=== PATIENT | female | born 1960 | race Caucasian/White ===

== ENCOUNTER 2016-05-07 02:01 | Inpatient (IN) | payer OTHER ==
[~2016-05-07] VITALS: Ht 167.6 cm; Wt 83.9 kg
[~2016-05-07 02:01] MED LIST: ACEPHEN650 MG PR; AMLODIPINE10 MG PO; APAP325 MG PO; ASPIRIN CHILDRE81 MG PO; ATORVASTATIN CA20 MG PO; ATORVASTATIN CA40 M1 PO; BACTRIM DS 8001 TAB PO; BISACODYL10 MG PR; CARISOPRODOL350 M1 PO; CIPRO 250MG250 MG PO; CLONIDINE0.2 MG PO; COLACE100 MG PO; COZAAR 100MG T100 MG PO; DIOVAN 160 MG160 MG PO; FLEET ENEMA 131 UNIT RC; HYDRODIURIL 2525 MG PO; JANUVIA 100MG100 MG PO; KOMBIGLYZE XR 11 TE1 PO; KOMBIGLYZE XR 11 TER PO; KOMBIGLYZE XR1 EAC1 PO; KOMBIGLYZE XR1 EAC2 PO; LASIX20 MG PO; LASIX40 M1 PO; LEVEMIR100 UNIT/1 SC; LISINOPRIL5 M1 PO; METOPROLOL SUCC50 M1 PO; METOPROLOL SUCC50 M2 PO; MILK OF MAGNESI30 ML PO; MORPHINE SULFAT15 M4 PO; MORPHINE SULFAT20 M1 PO; MORPHINE SULFAT30 M5 PO; MS CONTIN60 MG PO; NEURONTIN300 M1 PO; NEURONTIN300 MG PO; NITROSTAT0.4 MG PO; OXYCODONE HCL30 MG PO; PLAVIX 75MG TAB75 MG PO; PREDNISONE10 MG PO; PRO-STAT 101 3030 M1 PO; PROAIR HFA0.09 MG/Ac INH; REGLAN10 M1 PO; SYMBICORT 160/41 PUF INH; TOPROL XL 50MG50 MG PO; TYLENOL TAB 32325 MG PO; ZOFRAN ODT4 M1 SL
--- NOTE | 2016-05-07 02:10 | ED DYSPNEA/ASTHMA COMPLAINT ---
History of Present Illness General Chief Complaint: Dyspnea (COPD, CHF, Other) Stated Complaint: SOB Source: patient, old records, EMS Exam Limitations: no limitations Vital Signs & Intake/Output Vital Signs & Intake/Output Vital Signs Date Time Temp Pulse Resp B/P Pulse O2 O2 Flow FiO2 Ox Delivery Rate 05/07 219 94 Nasal 4.0L Cannula 05/07 214 91 Nasal 4.0L Cannula 05/07 204 97.2 112 24 131/83 91 Nasal 4.0L Cannula Allergies Coded Allergies: adhesive (UNKNOWN 09/12/15) Reconcile Medications Amlodipine Besylate (Amlodipine) 10 MG TABLET 1 TAB PO DAILY BP (Reported) Aspirin (Children's Aspirin) 81 MG TAB.CHEW 2 TAB PO DAILY HEART HEALTH Atorvastatin Calcium 40 MG TABLET 40 MG PO DAILY HEART HEALTH Carisoprodol 350 MG TABLET 1 TAB PO TIDPRN MUSCLE SPASMS (Reported) CLONIDINE HCL (Clonidine) 0.2 MG TABLET 2 TAB PO BID blood pressure (Reported ) Clopidogrel Bisulfate (Plavix) 75 MG TABLET 75 MG PO DAILY HEART HEALTH ( Reported) Docusate Sodium (Colace) 100 MG CAPSULE 1 CAP PO BID CONSTIPATION (Reported) Furosemide (Lasix) 40 MG TABLET 1 TAB PO DAILY DIURETIC (Reported) Gabapentin (Neurontin) 300 MG CAPSULE 1 CAP PO BID NERVE PAIN (Reported) Insulin Detemir (Levemir) 100 UNIT/1 ML VIAL 10 UNITS SC AT BED TIME DIABETES Lisinopril 5 MG TABLET 1 TAB PO DAILY KIDNEY HEALTH Metoprolol Succinate 50 MG TAB.ER.24H 1 TAB PO BID HEART/BP (Reported) Morphine Sulfate 15 MG TABLET 1 TAB PO Q4-6H PRN CHRONIC PAIN (Reported) Ms Contin (Morphine Sulfate ER) 60 MG TABLET.ER 1 TAB PO BID PAIN (Reported) Oxycodone HCl/Acetaminophen (Percocet 5-325 MG Tablet) 5 MG-325 MG TABLET 5 MG PO PRN PAIN (Reported) Saxagliptin HCl/Metformin HCl (Kombiglyze XR 2.5-1,000 MG Tab) 1 EACH TBMP.24HR 1 TAB PO BID DIABETES Triage Nurses Notes Reviewed? yes HPI: Patient has had increasing shortness of breath and a productive cough with white sputum for the past 2 days. Rest and she went to bed feeling okay but woke up very short of breath and feeling that she cannot catch her breath. Patient has been sleeping on 2 pillows which is chronic. Patient is also been experiencing chest tightness and she woke up. Tenderness constant. There is no aggravating or mitigating factors. There is no radiation. The tightness is substernal. She rates the tightness is 4 out of 10. Positive dyspnea on exertion. Patient continues to smoke. Patient is not on home O2. Upon arrival to the emergency department her oxygen saturation is 86% on room air. Patient has not been taking her insulin over the past few days because she has not felt well. Past History Travel History Traveled to [place] past 21 day No Medical History Any Pertinent Medical History? see below for history Neurological: NEUROPATHY EENT: NONE Cardiovascular: CAD, hypertension, PVD Respiratory: NONE Gastrointestinal: GERD Hepatic: NONE Renal: NONE Musculoskeletal: NONE Psychiatric: NONE Endocrine: diabetes Blood Disorders: NONE Cancer(s): NONE UROLOGY PHYSICIAN/Reproductive: NONE History of MRSA: Yes History of VRE: No History of CDIFF: No Surgical History Surgical History: non-contributory Psychosocial History Who do you live with Spouse What is your primary language Tajik Tobacco Use: Current Daily Use Daily Tobacco Use Amount/Type: => 5 Cigarettes daily ETOH Use: occasional use Illicit Drug Use: denies illicit drug use Family History Family History, If Any: Relation not specified for: *No pertinent family history Hx Contributory? No Review of Systems Review of Systems Constitutional: Reports: no symptoms. EENTM: Reports: no symptoms. Respiratory: Reports: see HPI, cough, short of breath, sputum production. Cardiovascular: Reports: see HPI, chest pain. GI: Reports: no symptoms. Genitourinary: Reports: no symptoms. Musculoskeletal: Reports: no symptoms. Skin: Reports: no symptoms. Neurological/Psychological: Reports: no symptoms. Hematologic/Endocrine: Reports: no symptoms. Immunologic/Allergic: Reports: no symptoms. All Other Systems: Reviewed and Negative Physical Exam Physical Exam General Appearance: well developed/nourished, alert, awake, anxious, severe distress Head: atraumatic Eyes: Bilateral: PERRL, EOMI. Ears, Nose, Throat: normal pharynx, normal ENT inspection Neck: normal inspection, supple, JVD Respiratory: decreased breath sounds, respiratory distress Cardiovascular: regular rate/rhythm, normal peripheral pulses Gastrointestinal: normal bowel sounds, soft, non-tender, no organomegaly Extremities: normal inspection, normal capillary refill, pedal edema Neurologic/Psych: no motor/sensory deficits, awake, alert, oriented x 3, normal mood/affect Skin: intact, normal color, warm/dry Lymphatic: no anterior cervical leandra Core Measures ACS in differential dx? Yes Severe Sepsis Present: No Septic Shock Present: No Progress Differential Diagnosis: AMI, bronchitis, CHF, COPD, pulmonary embolism, pneumonia, pneumothorax Plan of Care: Orders Procedure Date/time Status Admit to inpatient 05/07 0355 Active CTA CHEST-PULMONARY EMBOLISM 05/07 032 Active ARTERIAL BLOOD GAS (GEN) 05/07 206 Complete Telemetry/Technical Clerk 05/07 206 Active URINALYSIS 05/07 206 Active TROPONIN LEVEL 05/07 206 Complete D-DIMER 05/07 206 Complete COMPREHENSIVE METABOLIC PANEL 05/07 206 Complete CBC WITHOUT DIFFERENTIAL 05/07 206 Complete B-TYPE NATRIURETIC PEP (BNP) 05/07 206 Complete ACETONE 05/07 206 Complete EKG 05/07 206 Active Current Medications Sig/Zulma Start time Last Medication Dose Stop Time Status Admin Heparin Sodium 25,000 UNIT Q24H 05/07 344 UNVr (Porcine) (Heparin) Sodium Chloride 500 ML Heparin Sodium 4,000 UNIT ONCE ONE 05/07 344 UNVr (Porcine) 05/07 345 (Heparin Bolus) Insulin Human Regular 10 UNITS ONCE ONE 05/07 329 UNVr (Novolin R Inj) 05/07 033 Laboratory Tests 05/07/16 0345: Urine Color Pending, Urine Clarity Pending, Urine pH Pending, Ur Specific Steen Pending, Urine Protein Pending, Urine Ketones Pending, Urine Nitrite Pending, Urine Bilirubin Pending, Urine Urobilinogen Pending, Ur Leukocyte Esterase Pending, Ur Microscopic Pending, Urine Hemoglobin Pending, Urine Glucose Pending 05/07/16 0241: Anion Gap 12, Estimated GFR 57 L, BUN/Creatinine Ratio 21.0, Glucose 536 *H, Calcium 8.9, Total Bilirubin 0.4, AST 37 H, ALT 53 H, Alkaline Phosphatase 117 , Troponin I 0.36 *H, Xml-[id number]-Qgmrafaqams Pept 2430 H, Total Protein 6.2 L, Albumin 3.6, Globulin 2.6, Albumin/Globulin Ratio 1.4, D-Dimer 384 H, CBC w Diff NO MAN DIFF REQ, RBC 4.78, MCV 84.9, MCH 27.7, RDW 14.4, MPV 8.8, Gran % 81.8 H, Lymphocytes % 13.9 L, Monocytes % 3.1, Eosinophils % 0.9, Basophils % 0.3, Absolute Granulocytes 8.4 H, Absolute Lymphocytes 1.4, Absolute Monocytes 0.3, Absolute Eosinophils 0.1, Absolute Basophils 0, PUBS MCHC 32.6 L, Acetone Level NEGATIVE 05/07/16214: pH 7.39, pCO2 42, pO2 69 L, HCO3 25, ABG O2 Sat (Measured) 90.0 L, P-50 (Temp Corrected) Y, Carboxyhemoglobin 4.2, O2 Concentration % 4 LPM, Temperature 97.2, O2 Delivery Method N/C, Phlebotomy Draw Site RIGHT RADIAL Diagnostic Imaging: Viewed by Me: Radiology Read. Discussed w/RAD: Radiology Read. CXR Impression: PATIENT: TREY STARR PRESENT AGE: 56 PATIENT ACCOUNT NO: [id number] : 58 LOCATION: [facility] ORDERING PHYSICIAN: KEVIN VILLANUEVA MD SERVICE DATE: 05/07/16 EXAM TYPE: RAD - XRY- PORTABLE CHEST XRAY EXAMINATION: XR PORTABLE CHEST CLINICAL INFORMATION: Shortness of breath, orthopnea COMPARISON: 09/12/2015 TECHNIQUE: Portable AP view of the chest was obtained. FINDINGS: Lung volumes are symmetric. No dense consolidation is seen. There is increased prominence of the interstitial markings bilaterally along with subtle Noé B-lines, favoring interstitial edema. No evidence of pneumothorax or significant pleural effusion. Cardiac size is within normal limits. Calcification is present at the aortic arch. No acute osseous findings are seen. IMPRESSION: Mild interstitial edema. DICTATED BY: SACHI CARVALHO MD DATE/TIME DICTATED:05/07/16251 PAYROLL BENEFITS CLERK:JOSE DATE/TIME TRANSCRIBED:05/07/16251 CONFIDENTIAL, DO NOT COPY WITHOUT APPROPRIATE AUTHORIZATION. <Electronically signed in Other Vendor System> SIGNED BY: SACHI CARVALHO MD 05/07/16255 Initial ED EKG: NSR, nonspecific ST T wave chg Prior EKG: unchanged Rhythm Strip: normal sinus rhythm Departure Departure Disposition: STILL A PATIENT Condition: Guarded Clinical Impression Primary Impression: Elevated troponin Secondary Impressions: Hyperglycemia, Pulmonary edema Referrals: SHILPA HIGGINS MD (PCP/Family) Departure Forms: Customer Survey General Discharge Information Admission Note Spoke With: SHILPA HIGGINS MD Documentation of Exam: Documentation of any treatments & extenuating circumstances including Concerns Regarding Discharge (functional status, medication knowledge or non-compliance, living conditions, etc.) that warrant an admission rather than observation: [ Telemetry monitoring, cardiology consultation, IV diuresis, strict blood sugar control] Critical Care Note Critical Care Note Critical Care Time: mins: (30 MIN)
--- NOTE | 2016-05-07 02:14 | NUR ---
ARRIVED ER 2 VIA AMBULANCE FROM HOME, PT AWOKE FROM SLEEP WITH ACUTE SOB, RR 24-28 O2 SAT RA 86 % PLACED ON NC AT 4L/MIN SAT INCREASED TO 91% MONITOR ST. EVALUATED BY DR VILLANUEVA
--- NOTE | 2016-05-07 02:30 | NUR ---
PORT CXR,EKG,LABS,ABGS DONE RESP TX GIVEN
[2016-05-07] MEDS ORDERED: PERCOCET 5-3251 EACH PO (02:38)
--- NOTE | 2016-05-07 02:40 | NUR ---
PT NOTED TO HAVE LG HEMATOMA RT HAND, PT STATES THAT IS WHERE THE MEDIC TRIED TO START AN IV
[2016-05-07 02:52] LABS: ABSOLUTE BASOPHIL COUNT 0 /CUMM (0.0-0.2); ABSOLUTE EOSINOPHIL COUNT 0.1 /CUMM (0.0-0.7); ABSOLUTE GRANULOCYTE CT 8.4 /CUMM (1.4-6.5); ABSOLUTE LYMPH COUNT 1.4 /CUMM (1.2-3.4); ABSOLUTE MONOCYTE COUNT 0.3 /CUMM (0.10-0.60); BASOPHIL % 0.3 % (0.0-2.0); EOSINOPHIL % 0.9 % (0-5); HEMATOCRIT 40.6 % (37-47); MEAN CORPUSCULAR HGB 27.7 PG (27.0-31.0); MEAN CORPUSCULAR HGB CONC 32.6 G/DL (33.0-37.0); MEAN CORPUSCULAR VOLUME 84.9 FL (81.0-99.0); MEAN PLATELET VOLUME 8.8 FL (7.4-10.4); PLATELET COUNT 294 /CUMM (130-400); RBC DISTRIBUTION WIDTH 14.4 % (11.5-14.5); RED BLOOD CELL CT 4.78 /CUMM (4.20-5.40); WHITE BLOOD CELL COUNT 10.3 /CUMM (4.8-10.8)
[2016-05-07 02:54] LABS: GRANULOCYTE % 81.8 % (42.2-75.2)
--- NOTE | 2016-05-07 02:56 | RADIOLOGY REPORT ---
EXAMINATION: XR PORTABLE CHEST CLINICAL INFORMATION: Shortness of breath, orthopnea COMPARISON: 09/12/2015 TECHNIQUE: Portable AP view of the chest was obtained. FINDINGS: Lung volumes are symmetric. No dense consolidation is seen. There is increased prominence of the interstitial markings bilaterally along with subtle Noé B-lines, favoring interstitial edema. No evidence of pneumothorax or significant pleural effusion. Cardiac size is within normal limits. Calcification is present at the aortic arch. No acute osseous findings are seen. IMPRESSION: Mild interstitial edema.
--- NOTE | 2016-05-07 03:00 | NUR ---
BREATHING A LITTLE EASIER AFTER TX
--- NOTE | 2016-05-07 03:33 | NUR ---
CRITICAL TEST RESULTS [id number] TREY STARR 56 F TESTS AND RESULTS: TROP 0.36 Results received and read back by: SUSIE AMIN Results received date and time: 05/07/16 0334 The following provider was notified of the results, and read the results back: DR VILLANUEVA Notified date and time: 05/07/16 at 6537
--- NOTE | 2016-05-07 03:35 | NUR ---
CRITICAL TEST RESULTS [id number] TREY STARR 56 F TESTS AND RESULTS: GLUCOSE 536 Results received and read back by: SUSIE AMIN Results received date and time: 05/07/16 0335 The following provider was notified of the results, and read the results back: DR VILLANUEVA Notified date and time: 05/07/16 at 0320
--- NOTE | 2016-05-07 03:40 | NUR ---
MEDICATEDS WITH LASIX ORDERED
--- NOTE | 2016-05-07 03:43 | NUR ---
PT OVER TO CAT SCAN VIA STRETCHER.
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
--- NOTE | 2016-05-07 04:23 | NUR ---
ASAS 325 MG PO GIVEN REG INSULIN 10 UNITS SC
--- NOTE | 2016-05-07 04:54 | CT SCAN REPORT ---
EXAMINATION: CT ANGIOGRAM OF THE CHEST WITH AND WITHOUT CONTRAST (CT PULMONARY ANGIOGRAM FOR PE) CLINICAL INFORMATION: SOB AND +D-DIMER COMPARISON: 06/21/2014 TECHNIQUE: Prior to contrast administration, noncontrast localization images were obtained. Subsequently, multidetector volumetric imaging was performed from the thoracic inlet to below the diaphragms following the administration of 77 mL Optiray 350 intravenous contrast. No contrast reaction reported Sagittal, coronal, and MIP oblique sagittal reformatted images were obtained on the CT workstation, uploaded to PACS, and reviewed. Total exam dose-length product 457.78 mGy-cm FINDINGS: QUALITY OF STUDY/CONTRAST BOLUS: Satisfactory. PULMONARY ARTERIES: No central or segmental pulmonary emboli. THORACIC AORTA: No aneurysm or dissection. There is atherosclerotic calcification along the aorta. LUNG: There is smooth interlobular septal thickening towards the lung periphery, consistent with interstitial edema. There are several scattered regions of ill-defined focal groundglass opacity bilaterally, left greater than right. There is mild upper lobe predominant emphysema. Several scattered subcentimeter nodular densities are present bilaterally, most prominently at the lung apices; these appear new from 06/21/2014. PLEURA: Trace pleural effusions are present. No pneumothorax. MEDIASTINUM: The visualized thyroid gland is unremarkable. There is mild mediastinal adenopathy in the subcarinal and paratracheal regions. Mild right hilar adenopathy is also present. Adenopathy appears overall similar to 06/21/2014. Cardiac size is within normal limits; no pericardial effusion. Coronary artery calcifications are present. No evidence of septal bowing or right heart strain. CHEST WALL/AXILLA: No axillary or internal mammary lymphadenopathy. OSSEOUS STRUCTURES: Degenerative changes are noted in the spine. UPPER ABDOMEN: An exophytic left upper pole renal cyst is again noted measuring 1.8 cm. No reflux of contrast into the hepatic veins to suggest elevated right heart pressures. IMPRESSION: 1. No evidence of pulmonary embolus. 2. Interstitial edema. 3. Multifocal regions of ill-defined groundglass opacity bilaterally could reflect regions of developing alveolar edema or other nonspecific inflammatory change. 4. Several scattered subcentimeter pulmonary nodules, nonspecific. Follow-up chest CT in 3-6 months may be performed to assess for resolution. 5. Trace pleural effusions. 6. Mediastinal and right hilar adenopathy which is similar to 06/21/2014. VTE: negative
--- NOTE | 2016-05-07 04:54 | NUR ---
HEPARIN BOLUS 4000 UNITS IV GIVEN HEPARIN DRIP 25,000 UNITS IN 500 ML 0.45% N/S STRARTED AT 12UNITS/KG (17.2 ML/HR)
--- NOTE | 2016-05-07 05:12 | NUR ---
PT ASSIGNED TO # [id number]
--- NOTE | 2016-05-07 05:16 | NUR ---
REPORT TO TROY ROBIN EVALUATED BY HOUSESTAFF
[2016-05-07 05:43] VITALS: BP 136/80
[2016-05-07 08:11] VITALS: BP 170/82
--- NOTE | 2016-05-07 10:46 | Cons- Endocrinology ---
General Information and HPI Consulting Request Date of Consult: 05/07/16 Requested By: medical team Reason for Consult: management of DM type 2. Source of Information: patient, old records Exam Limitations: no limitations History of Present Illness: 56 year old female with a complicated past medical history significant for long-standing tobacco use, obstructive sleep apnea, hypertension, dyslipidemia, diabetes mellitus type 2, and coronary artery disease s/p CABG, and severe peripheral vascular disease, presented to the emergency department at [facility] on 05/07/2016 complaining of chest tightness. She was found to have troponin of 0.36, glucose 536. She was supposed to take Levemir 10 units daily and Kombiglyze XR 2.5mg/1000 mg twice a day. She hasn't started taking Levemir; due to insurance coverage, she hasn't been on Kombiglyza for a week. Allergies/Medications Allergies: Coded Allergies: adhesive (UNKNOWN 09/12/15) Home Med List: Amlodipine Besylate (Amlodipine) 10 MG TABLET 1 TAB PO DAILY BP (Reported) Aspirin (Children's Aspirin) 81 MG TAB.CHEW 2 TAB PO DAILY HEART HEALTH Atorvastatin Calcium 40 MG TABLET 40 MG PO DAILY HEART HEALTH Carisoprodol 350 MG TABLET 1 TAB PO TIDPRN MUSCLE SPASMS (Reported) CLONIDINE HCL (Clonidine) 0.2 MG TABLET 2 TAB PO BID blood pressure (Reported ) Clopidogrel Bisulfate (Plavix) 75 MG TABLET 75 MG PO DAILY HEART HEALTH ( Reported) Docusate Sodium (Colace) 100 MG CAPSULE 1 CAP PO BID CONSTIPATION (Reported) Furosemide (Lasix) 40 MG TABLET 1 TAB PO DAILY DIURETIC (Reported) Gabapentin (Neurontin) 300 MG CAPSULE 1 CAP PO BID NERVE PAIN (Reported) Insulin Detemir (Levemir) 100 UNIT/1 ML VIAL 10 UNITS SC AT BED TIME DIABETES Lisinopril 5 MG TABLET 1 TAB PO DAILY KIDNEY HEALTH Metoprolol Succinate 50 MG TAB.ER.24H 1 TAB PO BID HEART/BP (Reported) Morphine Sulfate 15 MG TABLET 1 TAB PO Q4-6H PRN CHRONIC PAIN (Reported) Ms Contin (Morphine Sulfate ER) 60 MG TABLET.ER 1 TAB PO BID PAIN (Reported) Oxycodone HCl/Acetaminophen (Percocet 5-325 MG Tablet) 5 MG-325 MG TABLET 5 MG PO PRN PAIN (Reported) Saxagliptin HCl/Metformin HCl (Kombiglyze XR 2.5-1,000 MG Tab) 1 EACH TBMP.24HR 1 TAB PO BID DIABETES Review of Systems Review of Systems Constitutional: Reports: see HPI. Cardiovascular: Reports: chest pain. Respiratory: Reports: short of breath. GI: Denies: abdominal pain. Hematologic/Endocrine: Reports: polyuria, polydipsia. 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 Home Who Do You Live With? spouse Services at Home: None Primary Language: Greek Smoking Status: Current Some Day Smoker (40 PPD) ETOH Use: occasional use Illicit Drug Use: denies illicit drug use Functional Ability ADLs Independent: dressing, eating, toileting, bathing. Ambulation: independent Exam & Diagnostic Data Last 24 Hrs of Vital Signs/I&O Vital Signs Date Time Temp Pulse Resp B/P Pulse O2 O2 Flow FiO2 Ox Delivery Rate 05/07 0917 93 170/82 05/07 0917 93 170/82 05/07 0916 93 170/82 05/07 0915 93 170/82 05/07 0811 97.7 93 20 170/82 98 Nasal 2.0L Cannula 05/07 0800 Nasal 2.0L Cannula 05/07 0547 98 Nasal 2.0L Cannula 05/07 0543 98.3 90 20 136/80 98 Nasal 2.0L Cannula 05/07 0521 93 18 193/83 97 Nasal 2.0L Cannula 05/07 0220 94 Nasal 4.0L Cannula 05/07 0215 91 Nasal 4.0L Cannula 05/07 0205 97.2 112 24 131/83 91 Nasal 4.0L Cannula Intake & Output 05/07 1600 05/07 0800 05/07 0000 Intake Total 50 Output Total 1000 Balance -950 Intake, Oral 50 Output, Urine 1000 Patient 164 lb Weight Physical Exam General Appearance: no apparent distress Neck: normal inspection Respiratory: decreased breath sounds Cardiovascular: regular rate/rhythm Gastrointestinal: central obesity Extremities: no edema Labs/Geo Results: Laboratory Tests 05/07 05/07 7935 0241 Chemistry Sodium (137 - 145 mmol/L) 137 Potassium (3.5 - 5.1 mmol/L) 4.0 Chloride (98 - 107 mmol/L) 96 L Carbon Dioxide (22 - 30 mmol/L) 29 Anion Gap (5 - 16) 12 BUN (7 - 17 mg/dL) 21 H Creatinine (0.5 - 1.0 mg/dL) 1.0 Estimated GFR (>60 ml/min) 57 L BUN/Creatinine Ratio (7 - 25 %) 21.0 Glucose (65 - 99 mg/dL) 536 *H Calcium (8.4 - 10.2 mg/dL) 8.9 Total Bilirubin (0.2 - 1.3 mg/dL) 0.4 AST (14 - 36 U/L) 37 H ALT (9 - 52 U/L) 53 H Alkaline Phosphatase (<127 U/L) 117 Troponin I (< 0.11 ng/ml) 0.36 *H [id number]-[id number] Pept (<125 pg/mL) 2430 H Total Protein (6.3 - 8.2 g/dL) 6.2 L Albumin (3.5 - 5.0 g/dL) 3.6 Globulin (1.9 - 4.2 gm/dL) 2.6 Albumin/Globulin Ratio (1.1 - 2.2 %) 1.4 Coagulation D-Dimer (70 - 232 ng/ml) 384 H Hematology CBC w Diff NO MAN DIFF REQ WBC (4.8 - 10.8 /CUMM) 10.3 RBC (4.20 - 5.40 /CUMM) 4.78 Hgb (12.0 - 16.0 G/DL) 13.2 Hct (37 - 47 %) 40.6 MCV (81.0 - 99.0 FL) 84.9 MCH (27.0 - 31.0 PG) 27.7 RDW (11.5 - 14.5 %) 14.4 Plt Count (130 - 400 /CUMM) 294 MPV (7.4 - 10.4 FL) 8.8 Gran % (42.2 - 75.2 %) 81.8 H Lymphocytes % (20.5 - 51.1 %) 13.9 L Monocytes % (1.7 - 9.3 %) 3.1 Eosinophils % (0 - 5 %) 0.9 Basophils % (0.0 - 2.0 %) 0.3 Absolute Granulocytes (1.4 - 6.5 /CUMM) 8.4 H Absolute Lymphocytes (1.2 - 3.4 /CUMM) 1.4 Absolute Monocytes (0.10 - 0.60 /CUMM) 0.3 Absolute Eosinophils (0.0 - 0.7 /CUMM) 0.1 Absolute Basophils (0.0 - 0.2 /CUMM) 0 PUBS MCHC (33.0 - 37.0 G/DL) 32.6 L Toxicology Acetone Level (NEGATIVE) NEGATIVE Urines Urinalysis LIGHT H Urine Color (YEL,AMB,STR) YEL Urine Clarity (CLEAR) CLEAR Urine pH (5.0 - 8.0) 6.0 Ur Specific [place] (1.001 - 1.035) 1.020 Urine Protein (NEG,<30 MG/DL) 100 H Urine Ketones (NEG) NEG Urine Nitrite (NEG) NEG Urine Bilirubin (NEG) NEG Urine Urobilinogen (0.1 - 1.0 EU/dl) 0.2 Ur Leukocyte Esterase (NEG) NEG Ur Microscopic SEDIMENT EXAMINED Urine RBC (0 - 5 /HPF) 1-3 Urine WBC (0 - 2 /HPF) 1-3 H Urine Hemoglobin (NEG) SMALL H Urine Glucose (N MG/DL) >=1000 H 05/07 0215 Blood Gas pH (7.35 - 7.45 PH) 7.39 pCO2 (35 - 45 TORR) 42 pO2 (80 - 100 TORR) 69 L HCO3 (21 - 28 MEQ/L) 25 ABG O2 Sat (Measured) (>96.0 %) 90.0 L P-50 (Temp Corrected) Y Carboxyhemoglobin (1.5 - 5.0 %) 4.2 O2 Concentration % 4 LPM Temperature (97.0 - 100.0 FARH) 97.2 O2 Delivery Method N/C Miscellaneous Phlebotomy Draw Site RIGHT RADIAL Assessment/Plan Assessment/Plan 56 year old female with a complicated past medical history significant for long-standing tobacco use, obstructive sleep apnea, hypertension, dyslipidemia, diabetes mellitus type 2 noncompliance, and coronary artery disease s/p CABG, and severe peripheral vascular disease, presented to the emergency department at [facility] on 05/07/2016 complaining of chest tightness. She was found to have troponin of 0.36, glucose 536. Currently patient was placed on Prednisone 40 mg daily. Her glucose level has been over 300. DM management: 1. start Levemir 16 nits daily ( 10 am); 2. adjust Novolog coverage before meals and add Novolog coverage at bedtime-- detail see the inpatient DM orders; 3. monitor FSGs; please inform me if her glucose level remains above 200 and then I will adjust her insulin orders accordingly. 4. I will consider initiating insulin drip if her glucose level remains significantly elevated. 5. check HbA1c. will follow. Inpatient Diabetes Orders Before Each Meal: Bolus Insulin: Novolog < 80 mg/dl: no coverage 80-100 mg/dl: 6 units 101-120 mg/dl: 6 units 121-150 mg/dl: 6 units 151-200 mg/dl: 8 units 201-250 mg/dl: 10 units 251-300 mg/dl: 12 units 301-350 mg/dl: 14 units 351-400 mg/dl: 16 units > 400 mg/dl: 18 units Bedtime: Bolus Insulin: Novolog < 80 mg/dl: no coverage 80-100 mg/dl: no coverage 101-120 mg/dl: no coverage 121-150 mg/dl: no coverage 151-200 mg/dl: no coverage 201-250 mg/dl: no coverage 251-300 mg/dl: 2 units 301-350 mg/dl: 3 units 351-400 mg/dl: 4 units > 400 mg/dl: 5 units Consult Acknowledgment - Thank you for your consult request.
[2016-05-07 12:34] LABS: PTT 39 SEC (25-37)
--- NOTE | 2016-05-07 13:00 | Admission Certification ---
Admission Certification Certification Statement - As attending physician, I certify that at the time of - admission, based on clinical presentation, severity of - symptoms, need for further diagnostic testing and - therapeutic interventions, and risk of adverse outcomes - without in-hospital treatment, in my clinical assessment, - this patient requires an acute hospital stay for a minimum - of two nights or longer. I have also considered psychsocial - factors such as support system, advanced age, financial - issues, cognitive issues, and failed out-patient treatments, - past re-admission history, safety of patient, and lack of - compliance as applicable. Specific rationale supporting this admission is: Worsening shortness of breath for the for the past couple of days chest tightness elevated troponin and elevated BNP and uncontrolled diabetes
--- NOTE | 2016-05-07 13:03 | PN- Att Addend ---
Attending Addendum Attending Brief Note 56-year-old white female with many comorbidities. Still smokes. 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 In the ER she got IV diuretics some improvement of the symptoms patient is admitted for evaluation, she had an elevated troponin and BNP. Also her sugars were very high. Will have cardiology and endocrine consultations while in the hospital continue to diuresis monitor serial troponins and rest of the blood work Laboratory Tests 05/07 05/07 1115 0345 Chemistry Troponin I Pending Coagulation APTT (25 - 37 SEC) 39 H Urines Urinalysis LIGHT H Urine Color (YEL,AMB,STR) YEL Urine Clarity (CLEAR) CLEAR Urine pH (5.0 - 8.0) 6.0 Ur Specific [place] (1.001 - 1.035) 1.020 Urine Protein (NEG,<30 MG/DL) 100 H Urine Ketones (NEG) NEG Urine Nitrite (NEG) NEG Urine Bilirubin (NEG) NEG Urine Urobilinogen (0.1 - 1.0 EU/dl) 0.2 Ur Leukocyte Esterase (NEG) NEG Ur Microscopic SEDIMENT EXAMINED Urine RBC (0 - 5 /HPF) 1-3 Urine WBC (0 - 2 /HPF) 1-3 H Urine Hemoglobin (NEG) SMALL H Urine Glucose (N MG/DL) >=1000 H 05/07 05/07 0241 0215 Blood Gas pH (7.35 - 7.45 PH) 7.39 pCO2 (35 - 45 TORR) 42 pO2 (80 - 100 TORR) 69 L HCO3 (21 - 28 MEQ/L) 25 ABG O2 Sat (Measured) (>96.0 %) 90.0 L P-50 (Temp Corrected) Y Carboxyhemoglobin (1.5 - 5.0 %) 4.2 O2 Concentration % 4 LPM Temperature (97.0 - 100.0 FARH) 97.2 O2 Delivery Method N/C Chemistry Sodium (137 - 145 mmol/L) 137 Potassium (3.5 - 5.1 mmol/L) 4.0 Chloride (98 - 107 mmol/L) 96 L Carbon Dioxide (22 - 30 mmol/L) 29 Anion Gap (5 - 16) 12 BUN (7 - 17 mg/dL) 21 H Creatinine (0.5 - 1.0 mg/dL) 1.0 Estimated GFR (>60 ml/min) 57 L BUN/Creatinine Ratio (7 - 25 %) 21.0 Glucose (65 - 99 mg/dL) 536 *H Calcium (8.4 - 10.2 mg/dL) 8.9 Total Bilirubin (0.2 - 1.3 mg/dL) 0.4 AST (14 - 36 U/L) 37 H ALT (9 - 52 U/L) 53 H Alkaline Phosphatase (<127 U/L) 117 Troponin I (< 0.11 ng/ml) 0.36 *H Dbb-[id number]-Jaictacsubv Pept (<125 pg/mL) 2430 H Total Protein (6.3 - 8.2 g/dL) 6.2 L Albumin (3.5 - 5.0 g/dL) 3.6 Globulin (1.9 - 4.2 gm/dL) 2.6 Albumin/Globulin Ratio (1.1 - 2.2 %) 1.4 Coagulation D-Dimer (70 - 232 ng/ml) 384 H Hematology CBC w Diff NO MAN DIFF REQ WBC (4.8 - 10.8 /CUMM) 10.3 RBC (4.20 - 5.40 /CUMM) 4.78 Hgb (12.0 - 16.0 G/DL) 13.2 Hct (37 - 47 %) 40.6 MCV (81.0 - 99.0 FL) 84.9 MCH (27.0 - 31.0 PG) 27.7 RDW (11.5 - 14.5 %) 14.4 Plt Count (130 - 400 /CUMM) 294 MPV (7.4 - 10.4 FL) 8.8 Gran % (42.2 - 75.2 %) 81.8 H Lymphocytes % (20.5 - 51.1 %) 13.9 L Monocytes % (1.7 - 9.3 %) 3.1 Eosinophils % (0 - 5 %) 0.9 Basophils % (0.0 - 2.0 %) 0.3 Absolute Granulocytes (1.4 - 6.5 /CUMM) 8.4 H Absolute Lymphocytes (1.2 - 3.4 /CUMM) 1.4 Absolute Monocytes (0.10 - 0.60 /CUMM) 0.3 Absolute Eosinophils (0.0 - 0.7 /CUMM) 0.1 Absolute Basophils (0.0 - 0.2 /CUMM) 0 PUBS MCHC (33.0 - 37.0 G/DL) 32.6 L Miscellaneous Phlebotomy Draw Site RIGHT RADIAL Toxicology Acetone Level (NEGATIVE) NEGATIVE Chest x-ray showed some interstitial edema.
--- NOTE | 2016-05-07 13:28 | Cons- Cardiology ---
General Information and HPI Consulting Request Date of Consult: 05/07/16 Requested By: SHILPA HIGGINS MD Reason for Consult: Chest tightness and positive troponin I. Source of Information: patient, family, old records Exam Limitations: poor historian History of Present Illness: Mrs. Ansley Singleton is a 56-year-old female with a complex past medical history including: long-standing continued tobacco use, positive screening for obstructive sleep apnea, hypertension, dyslipidemia, diabetes mellitus, severe peripheral vascular disease (s/p angioplasty and stenting of her left superficial femoral artery, left popliteal artery, left anterior tibial artery, tibioperoneal trunk, and left common iliac artery in January 2010; status post fifth toe amputation for gangrene and osteomyelitis 02/22/2014; s/p infected wound left foot with open incision and drainage 05/18/2014; s/p left iliofemoral endarterectomy with patch angioplasty and left femoral to anterior tibial bypass with reverse greater saphenous vein, complicated by acute pulmonary edema with a NSTEMI during admission from 05/18-06/01/2014, complicated by a left groin infection at the previous operative site requiring readmission 06/15-06/24/2014 for I and D and wound VAC dressing change on 06/20/2014 that was again complicated by acute shortness with a troponin bump), coronary artery disease (s /p PCI with stenting of her right coronary artery January 1999; CABG x 3 on 05/2011; s/p NSTEMI's, as above), and medical noncompliance who presented from home via ambulance with severe chest "tightness", wheezing, and shortness of breath. She began experiencing upper respiratory symptoms 2 weeks with a cough productive of tenacious, whitish sputum for which she sought no medical attention. She denies having any associated fever, chills, etc. Additionally, she did some shoveling following our recent snowstorms and denies any difficulty doing this, stating that she "took my time". She states that she was awakened from sleep at around 11:30 PM last night (05/06) with wheezing and severe ("10/10") chest tightness that was felt to the left of the sternum, did not radiate, and was not associated with nausea, diaphoresis, etc. She sat on the side of the bed and states that she was "unable to catch my breath". Her came home from work about an hour later and she recommended that he call 911 which he did. En route to the ED she reports receiving SL NTG spray 2 without any change in her symptoms. In the ED she received a breathing treatment which she states did help improve her symptoms. At present she is chest discomfort free and denies any other symptoms. She was last hospitalized here (09/11-09/15/2015) with abdominal pain that was ultimately felt to have occurred secondary to a NSTEMI with a modest troponin elevation. We recommended cardiac catheterization at that time, but this the patient flatly refused. She did agree to outpatient nuclear stress testing, but never followed up for this, despite multiple attempts from our office to have this performed. Allergies/Medications Allergies: Coded Allergies: adhesive (UNKNOWN 09/12/15) Home Med List: Amlodipine Besylate (Amlodipine) 10 MG TABLET 1 TAB PO DAILY BP (Reported) Aspirin (Children's Aspirin) 81 MG TAB.CHEW 2 TAB PO DAILY HEART HEALTH Atorvastatin Calcium 40 MG TABLET 40 MG PO DAILY HEART HEALTH Carisoprodol 350 MG TABLET 1 TAB PO TIDPRN MUSCLE SPASMS (Reported) CLONIDINE HCL (Clonidine) 0.2 MG TABLET 2 TAB PO BID blood pressure (Reported ) Clopidogrel Bisulfate (Plavix) 75 MG TABLET 75 MG PO DAILY HEART HEALTH ( Reported) Docusate Sodium (Colace) 100 MG CAPSULE 1 CAP PO BID CONSTIPATION (Reported) Furosemide (Lasix) 40 MG TABLET 1 TAB PO DAILY DIURETIC (Reported) Gabapentin (Neurontin) 300 MG CAPSULE 1 CAP PO BID NERVE PAIN (Reported) Insulin Detemir (Levemir) 100 UNIT/1 ML VIAL 10 UNITS SC AT BED TIME DIABETES Lisinopril 5 MG TABLET 1 TAB PO DAILY KIDNEY HEALTH Metoprolol Succinate 50 MG TAB.ER.24H 1 TAB PO BID HEART/BP (Reported) Morphine Sulfate 15 MG TABLET 1 TAB PO Q4-6H PRN CHRONIC PAIN (Reported) Ms Contin (Morphine Sulfate ER) 60 MG TABLET.ER 1 TAB PO BID PAIN (Reported) Oxycodone HCl/Acetaminophen (Percocet 5-325 MG Tablet) 5 MG-325 MG TABLET 5 MG PO PRN PAIN (Reported) Saxagliptin HCl/Metformin HCl (Kombiglyze XR 2.5-1,000 MG Tab) 1 EACH TBMP.24HR 1 TAB PO BID DIABETES Current Medications: Current Medications Sig/Zulma Start time Last Medication Dose Route Stop Time Status Admin Albuterol Sulfate 3 ML ONCE ONE 05/07 0215 DC 05/07 INH 05/07 0216 0220 Amlodipine Besylate 10 MG DAILY 05/07 1000 AC 05/07 PO 0916 Aspirin 162 MG DAILY 05/07 1000 AC 05/07 PO 0914 Aspirin 0 .STK-MED ONE 05/07 0412 DC PO Aspirin 325 MG ONCE ONE 05/07 0400 DC 05/07 PO 05/07 0401 0422 Atorvastatin Calcium 40 MG DAILY 05/07 1000 AC 05/07 PO 0916 Clonidine 0.4 MG BID 05/07 1000 AC 05/07 PO 0915 Clopidogrel Bisulfate 75 MG DAILY 05/07 1000 AC 05/07 PO 0916 Docusate Sodium 100 MG BID 05/07 1000 AC 05/07 PO 0916 Furosemide 40 MG DAILY 05/07 1000 AC 05/07 IV 0912 Furosemide 0 .STK-MED ONE 05/07 0324 DC IV Furosemide 0 .STK-MED ONE 05/07 0317 DC IV Furosemide 40 MG ONCE ONE 05/07 0315 DC 05/07 IV 05/07 0316 0351 Gabapentin 300 MG BID 05/07 1000 AC 05/07 PO 0916 Heparin Sodium 0 .STK-MED ONE 05/07 0412 DC (Porcine) .ROUTE Heparin Sodium 25,000 UNIT Q24H 05/07 0345 AC 05/07 (Porcine) IV 0457 Sodium Chloride 500 ML Heparin Sodium 4,000 UNIT ONCE ONE 05/07 0345 DC 05/07 (Porcine) IV 05/07 0346 0457 Insulin Aspart 0 TIDAC/HS 05/07 0841 AC 05/07 SC 1306 Insulin Aspart 0 TIDAC 05/07 0800 DC SC Insulin Detemir 10 UNITS AT BEDTIME 05/07 2200 DC SC Insulin Detemir 16 UNITS DAILY 05/07 1000 AC 05/07 SC 0913 Insulin Human Regular 10 UNITS ONCE ONE 05/07 0330 DC 05/07 SC 05/07 0331 0422 Lisinopril 5 MG DAILY 05/07 1000 AC 05/07 PO 0917 Metoprolol Succinate 50 MG BID 05/07 1000 AC 05/07 PO 0917 Morphine Sulfate 15 MG Q4-6 PRN PRN 05/07 1200 AC PO Morphine Sulfate 60 MG BID 05/07 1000 AC 05/07 PO 1100 Morphine Sulfate 15 MG .[Q4-6H] PRN 05/07 0615 DC 05/07 PO 0610 Oxycodone HCl 5 MG Q6P PRN 05/07 0615 DC PO Oxycodone/ 1 TAB Q6P PRN 05/07 0830 AC 05/07 Acetaminophen PO 0914 Prednisone 40 MG DAILY 05/07 1000 AC 05/07 PO 05/11 1001 0916 Review of Systems Review of Systems: A 14 point system review was obtained and was noncontributory, other than as above. Past History Travel History Traveled to [place] past 21 day No Medical History Neurological: NEUROPATHY EENT: NONE Cardiovascular: CAD, hypertension, PVD Respiratory: NONE Gastrointestinal: GERD Hepatic: NONE Renal: NONE Musculoskeletal: NONE Psychiatric: NONE Endocrine: diabetes Blood Disorders: NONE Cancer(s): NONE MECHANICAL ARTIST/Reproductive: NONE Surgical History Surgical History: non-contributory Family History Relations & Conditions If Any: Relation not specified for: *No pertinent family history Psychosocial History Where Do You Live? Home Who Do You Live With? spouse Services at Home: None Primary Language: Qatari Smoking Status: Current Some Day Smoker (40 PPD) ETOH Use: occasional use Illicit Drug Use: denies illicit drug use Functional Ability ADLs Independent: dressing, eating, toileting, bathing. Ambulation: independent Exam & Diagnostic Data Vital Signs and I&O Vital Signs Date Time Temp Pulse Resp B/P Pulse O2 O2 Flow FiO2 Ox Delivery Rate 05/07 0917 93 170/82 05/07 0917 93 170/82 05/07 0916 93 170/82 05/07 0915 93 170/82 05/07 0811 97.7 93 20 170/82 98 Nasal 2.0L Cannula 05/07 0800 Nasal 2.0L Cannula 05/07 0547 98 Nasal 2.0L Cannula 05/07 0543 98.3 90 20 136/80 98 Nasal 2.0L Cannula 05/07 0521 93 18 193/83 97 Nasal 2.0L Cannula 05/07 0220 94 Nasal 4.0L Cannula 05/07 0215 91 Nasal 4.0L Cannula 05/07 0205 97.2 112 24 131/83 91 Nasal 4.0L Cannula Intake & Output 05/07 1600 05/07 0800 05/07 0000 05/06 1600 05/06 0800 02/13 0000 Intake Total 50 Output Total 1000 Balance -950 Intake, Oral 50 Output, Urine 1000 Patient 164 lb Weight Physical Exam: Well-developed, chronically ill-appearing middle-aged female in no acute distress with nasal oxygen in place. Vital signs: See above. HEENT: Normocephalic, atraumatic, EOMI, slightly dry mucous membranes. Neck: No JVD, no bruits. Lungs: Decreased breath sounds bilaterally. Heart: S1, S2 with grade 1-2/6 systolic murmur. No gallop or rub appreciated. PMI fifth ICS at [facility]. Excellent abdomen: Soft, nontender, positive bowel sounds. Extremities: No edema. Labs/Geo Results: Laboratory Tests 05/07 05/07 1115 0345 Chemistry Troponin I Pending Coagulation APTT (25 - 37 SEC) 39 H Urines Urinalysis LIGHT H Urine Color (YEL,AMB,STR) YEL Urine Clarity (CLEAR) CLEAR Urine pH (5.0 - 8.0) 6.0 Ur Specific [place] (1.001 - 1.035) 1.020 Urine Protein (NEG,<30 MG/DL) 100 H Urine Ketones (NEG) NEG Urine Nitrite (NEG) NEG Urine Bilirubin (NEG) NEG Urine Urobilinogen (0.1 - 1.0 EU/dl) 0.2 Ur Leukocyte Esterase (NEG) NEG Ur Microscopic SEDIMENT EXAMINED Urine RBC (0 - 5 /HPF) 1-3 Urine WBC (0 - 2 /HPF) 1-3 H Urine Hemoglobin (NEG) SMALL H Urine Glucose (N MG/DL) >=1000 H 05/07 05/07 0241 0215 Blood Gas pH (7.35 - 7.45 PH) 7.39 pCO2 (35 - 45 TORR) 42 pO2 (80 - 100 TORR) 69 L HCO3 (21 - 28 MEQ/L) 25 ABG O2 Sat (Measured) (>96.0 %) 90.0 L P-50 (Temp Corrected) Y Carboxyhemoglobin (1.5 - 5.0 %) 4.2 O2 Concentration % 4 LPM Temperature (97.0 - 100.0 FARH) 97.2 O2 Delivery Method N/C Chemistry Sodium (137 - 145 mmol/L) 137 Potassium (3.5 - 5.1 mmol/L) 4.0 Chloride (98 - 107 mmol/L) 96 L Carbon Dioxide (22 - 30 mmol/L) 29 Anion Gap (5 - 16) 12 BUN (7 - 17 mg/dL) 21 H Creatinine (0.5 - 1.0 mg/dL) 1.0 Estimated GFR (>60 ml/min) 57 L BUN/Creatinine Ratio (7 - 25 %) 21.0 Glucose (65 - 99 mg/dL) 536 *H Calcium (8.4 - 10.2 mg/dL) 8.9 Total Bilirubin (0.2 - 1.3 mg/dL) 0.4 AST (14 - 36 U/L) 37 H ALT (9 - 52 U/L) 53 H Alkaline Phosphatase (<127 U/L) 117 Troponin I (< 0.11 ng/ml) 0.36 *H Zql-A-Mspoggbrzgi Pept (<125 pg/mL) 2430 H Total Protein (6.3 - 8.2 g/dL) 6.2 L Albumin (3.5 - 5.0 g/dL) 3.6 Globulin (1.9 - 4.2 gm/dL) 2.6 Albumin/Globulin Ratio (1.1 - 2.2 %) 1.4 Coagulation D-Dimer (70 - 232 ng/ml) 384 H Hematology CBC w Diff NO MAN DIFF REQ WBC (4.8 - 10.8 /CUMM) 10.3 RBC (4.20 - 5.40 /CUMM) 4.78 Hgb (12.0 - 16.0 G/DL) 13.2 Hct (37 - 47 %) 40.6 MCV (81.0 - 99.0 FL) 84.9 MCH (27.0 - 31.0 PG) 27.7 RDW (11.5 - 14.5 %) 14.4 Plt Count (130 - 400 /CUMM) 294 MPV (7.4 - 10.4 FL) 8.8 Gran % (42.2 - 75.2 %) 81.8 H Lymphocytes % (20.5 - 51.1 %) 13.9 L Monocytes % (1.7 - 9.3 %) 3.1 Eosinophils % (0 - 5 %) 0.9 Basophils % (0.0 - 2.0 %) 0.3 Absolute Granulocytes (1.4 - 6.5 /CUMM) 8.4 H Absolute Lymphocytes (1.2 - 3.4 /CUMM) 1.4 Absolute Monocytes (0.10 - 0.60 /CUMM) 0.3 Absolute Eosinophils (0.0 - 0.7 /CUMM) 0.1 Absolute Basophils (0.0 - 0.2 /CUMM) 0 PUBS MCHC (33.0 - 37.0 G/DL) 32.6 L Miscellaneous Phlebotomy Draw Site RIGHT RADIAL Toxicology Acetone Level (NEGATIVE) NEGATIVE Diagnostic Data EKG Results (05/07/2016) sinus rhythm, first-degree AV block, poor precordial R-wave progression, nondiagnostic ST segment elevation V1-V3, and diffuse ST-T wave abnormalities in diffuse leads, cannot exclude ischemia. Slower rate when compared to previous study earlier today. CXR Results (05/07/2016) mild interstitial edema. Other Results CT angiogram (05/07/2016) No evidence of pulmonary embolus. Interstitial edema. Multifocal regions of ill-defined groundglass opacity bilaterally could reflect regions of developing alveolar edema or other nonspecific inflammatory change. Several scattered subcentimeter pulmonary nodules, nonspecific. Follow-up chest CT in 3-6 months may be performed to assess for resolution. Trace pleural effusions. Mediastinal and right hilar adenopathy which is similar to 2014. VTE: negative Assessment/Plan Assessment/Plan Mrs. Singleton is a middle-aged female with a history of long-standing continued tobacco use, obstructive sleep apnea, hypertension, dyslipidemia, diabetes mellitus, severe peripheral vascular disease, and coronary artery disease (s/p PCI with stenting of her right coronary artery January 1999; CABG x 3 on 11/25/2011; s/p NSTEMI's 04/2014; 05/2014, as above), and medical noncompliance who presented from home with shortness of breath and chest tightness with an electrocardiogram that revealed a mild sinus tachycardia and nondiagnostic ST-T wave abnormalities that appeared less pronounced than changes on her previous electrocardiogram from 09/12/2015, but who also had an initial modest troponin elevation of 0.36 ng/dl. We were asked to evaluate and help manage Mrs. Singleton today and she was fortunately chest discomfort free at that time, but did admit to having chest tightness and shortness of breath that brought her in for over an hour. Management options were discussed with Mrs. Singleton had her and it was recommended that she undergo cardiac catheterization with an eye towards revascularization. She agreed to this management strategy. She has remained chest discomfort free, but did have a significant elevation in her second troponin I to 19.4 ng/dl. Recommendations: * Transfer to ICU, follow-up troponins, follow-up electrocardiograms. * Obtain echocardiogram to reassess her left ventricular function. * Continue IV heparin in anticipation of cardiac catheterization tomorrow morning and make nothing by mouth after midnight tonight. * Continue on the rest of her cardiac medications (antiplatelets, beta ga, HANK inhibitor, statin, nitrates with 10-12 hr nitrate free interval, etc.). * Prophylaxis for deep venous thrombosis being addressed with IV heparin. * Prepare medical record for transfer to [facility] tomorrow morning with our interventionalist (Raudel Rodriguez M.D., PhD) as accepting physician. * Continue to follow-up on recommendations from endocrinology (Serge Vela M.D.) . Further recommendations will follow, Thank you. Consult Acknowledgment - Thank you for your consult request.
--- NOTE | 2016-05-07 14:44 | Event Note ---
Event Note Event Note: Patient's second set of troponins was 19.4 from 0.36, the EKG showed new ST elevation in V1 and V2. [employer] Paralegal dr. Gibbs and attening Dr. Olivier is also informed. Patient is already on heprin drip, aspirin and plavix. Asymptomatic otherwise and ROS is negative.
[2016-05-07 16:00] VITALS: BP 190/98
--- NOTE | 2016-05-07 16:28 | Transfer of Care Summary ---
Hospital Course Course Hospital Course: Patient is 66-year female with long standing hx of tobacco smoke,was brought in by ambulance for dyspnea and chest tightness. Her past medical history significant for obstructive sleep apnea not on CPAP, hypertension, dyslipidemia, diabetes (noncompliant with insulin), coronary artery disease (status post PCI s /p stent placement 1998;CABG x3 on 11/25/2011), severe peripheral vascular disease status post angioplasty and multiple stent placements, and palpitation of the left fifth great toe, history of soft tissue infection with MRSA and Pseudomonas , history of NSTEMI in 2015 and 2016. Patient is not physically active and and has baseline exertional dyspnea. 3 weeks ago she had symptoms of upper respiratory tract infection including generalized malaise, dry cough and runny nose. Her cough became productive of yellow sputum(tablespoon, no blood) and she noticed that her baseline exertional dyspnea worsens to the level that hampered her ability to to her daily chores. Patient reports worsening bilateral pedal edema and increasing abdominal girth for the past 3 days. She has been compliant with her Lasix but not compliant with her heart failure diets. Patient denies any fever, shaking chills, recent travel, contact with sick person, GI/ symptoms, chest pain and palpitation and lightheadedness. Patient reports that she woke up with a feeling of chest tightness on the night of admission, 8 out of 10 in the scale of severity, the patient described as constant tightness in the middle of her chest with no radiation with no aggravating/alleviating factors, nonpleuritic, nonreproducible. Patient was not able to ambulate due to severe shortness of breath. Ambulance was called and patient was transferred to emergency room. Patient also mentioned respiratory wheezing associated with her chest tightness. In the ambulance patient was given nitrates without improvement of her chest tightness and dyspnea. In the emergency room, her O2 saturation was initially 86% in room air and patient was restarted on 4 lit oxygen N/C. Chest x-ray:Mild interstitial edema. CTA: No evidence of pulmonary embolus;Interstitial edema;ill-defined groundglass opacity; pulmonary nodules, nonspecific. Follow-up chest CT in 3-6 months may be performed to assess for resolution; Mediastinal and right hilar adenopathy which is similar to 06/21/2014. Assessment/Plan: List of problems 1.Acute hypoxic respiratory failure 2. Elevated troponin in context of history of CAD concerning for an NSTEMI 3. Decompensated congestive heart failure 3. Hypertension, 4. Hyperlipidemia, 5. Coronary disease status post triple bypass, 6. Peripheral vascular disease, 7. Diabetes 8. Peripheral neuropathy 9. Hypokalemia Acute hypoxic respiratory failure: Patient had hypoxic respiratory failure with increased PAO2-PaO2 gradients that improved with administration of oxygen. Patient had elevated d-dimer which was followed by negative CTA. Her Bc x2 were drawn, and she was started on TRC nebs as needed, ipratropium inhailer etc. NSTEMI Patient came with troponins of 0.3, the second set was elevated to 19.4, Dr Gibbs was informed, decision to transfer patient to ICU. Patient was already on heprin drip. EKG also showed ST elevations in V1 and v2. She was continued on atorvastatin, metoprolol, Plavix 75 mg by mouth daily Congestive heart failure SHe was started on IV lasix 60 daily with monitoring of iput and output. Hypertension Continued on amlodipine and lisinopril 5 mg Diabetes: Elevated blood sugar of more than 500 noncompliant with insulin. Patient was evaluated by Dr. Mcconnell in am. SS adjusted.
--- NOTE | 2016-05-07 16:37 | NUR ---
TROPONIN DRAWN AT THIS TIME VIA PIVO TO LEFT ARM. ECHO IN PROGRESS. EKG TO BE DONE AFTER ECHO.
[2016-05-07 18:06] LABS: PTT 68 SEC (25-37)
--- NOTE | 2016-05-07 21:13 | Discharge Summary ---
Visit Information Visit Dates Admission Date: 05/07/16 Discharge Date: 05/08/16 Hospital Course Course Attending Physician: SHILPA AVILEZ MD Primary Care Physician: SHILPA AVILEZ MD Hospital Course: Mrs. Singleton is a 56-year-old female with significant cardiac/vascular history including coronary artery disease (s/p PCI with stenting of her right coronary artery January 1999; CABG x 3 on 11/25/2011), severe PVD ( s/p left iliofemoral endarterectomy with patch angioplasty and left femoral to anterior tibial bypass with reverse greater saphenous vein, complicated by acute pulmonary edema with a NSTEMI during admission from 05/18-06/01/2014, complicated by a left groin infection at the previous operative site requiring readmission 06/15-06/24/2014 for I and D and wound VAC dressing change on 06/20/2014 that was again complicated by acute shortness with a troponin bump), with left great toe amputation (for gangrene and osteomyelitis 02/22/2014). She also has a significant history of sleep apnea, hypertension, hyperlipidemia, diabetes [noncompliant with medications], and she continues to smoke. She presented to the ED complaining of worsening dyspnea and lower extremity edema as well as abdominal girth. She also complained of chest tightness tonight of her admission which she described as constant tightness in the middle of her chest without radiation. She rated it 8/10 in severity and subsequently called EMS and was brought to the ED. Previously she was hospitalized here (09/11-09/15/2015) with abdominal pain that was ultimately felt to have occurred secondary to a NSTEMI with a modest troponin elevation. We recommended cardiac catheterization at that time, but this the patient flatly refused. She did agree to outpatient nuclear stress testing, but never followed up for this, despite multiple attempts from our office to have this performed. Her troponins trended upwards from 0.3 on admission to a maximum of 19.4, and was subsequently started on a heparin drip and transferred to ICU. EKG did show ST elevations in V1 and V2. Her statin, beta ga, Plavix and aspirin were continued. Was also started on a nitroglycerin patch every 12 hours. Since being transferred to the ICU, she has been asymptomatic. Currently our plan is to transfer for cardiac catheterization at [facility] with Dr. Raudel Rodriguez MD. Allergies: Coded Allergies: adhesive (UNKNOWN 09/12/15) Disposition Summary Disposition Principal Diagnosis: STEMI Additional Diagnosis: HLD, DM, HTN, CAD, PVD Discharge Disposition: other general hospital Discharge Instructions General Discharge Information Code Status: Full Code Patient's Diet: NPO Patient's Activity: As tolerated Follow-Up Instructions/Appts: Please follow up with Dr. Gibbs in [address] [facility]. Please follow up with Dr. Avilez in 1-2 weeks of discharge. Medications at Discharge Discharge Medications: Stop taking the following medications: Carisoprodol (Carisoprodol) 350 MG TABLET ORAL THREE TIMES A DAY NEEDED Saxagliptin HCl/Metformin HCl (Kombiglyze XR 2.5-1,000 MG Tab) 1 EACH TBMP.24HR ORAL TWICE DAILY Days = 30 Continue taking these medications: Amlodipine Besylate (Amlodipine) 10 MG TABLET 1 Tablet ORAL DAILY Comments: Last Taken: 06/24/14 Time: 9:00 AM CLONIDINE HCL (Clonidine) 0.2 MG TABLET 2 Tablet ORAL TWICE DAILY Comments: Last Taken: 06/24/14 Time: 9:00 AM Aspirin (Children's Aspirin) 81 MG TAB.CHEW 2 Tablet ORAL DAILY Days = 30 Ms Contin (Morphine Sulfate ER) 60 MG TABLET.ER 1 Tablet ORAL TWICE DAILY Comments: Last Taken: 06/24/14 Time: 9:00 AM Docusate Sodium (Colace) 100 MG CAPSULE 1 Capsule ORAL TWICE DAILY Comments: Last Taken: 06/24/14 Time: 9:00 AM Clopidogrel Bisulfate (Plavix) 75 MG TABLET 75 Milligram ORAL DAILY Comments: Last Taken: 06/24/14 Time: 9:00 AM Morphine Sulfate (Morphine Sulfate) 15 MG TABLET 1 Tablet ORAL Q4-6H as needed for CHRONIC PAIN Comments: PER PT MED LABEL - MAX OF 4 TABS A DAY Gabapentin (Neurontin) 300 MG CAPSULE 1 Capsule ORAL TWICE DAILY Comments: PER PT MED LABEL Furosemide (Lasix) 40 MG TABLET 1 Tablet ORAL DAILY Comments: PER PT MED LABEL Metoprolol Succinate (Metoprolol Succinate) 50 MG TAB.ER.24H 1.5 Tablet ORAL TWICE DAILY Qty = 15 Comments: PER PT Insulin Detemir (Levemir) 100 UNIT/1 ML VIAL 10 Units Inject into fatty tissue AT BED TIME Days = 30 Atorvastatin Calcium (Atorvastatin Calcium) 40 MG TABLET 40 Milligram ORAL DAILY Days = 30 Lisinopril (Lisinopril) 5 MG TABLET 1 Tablet ORAL DAILY Days = 30 Oxycodone HCl/Acetaminophen (Percocet 5-325 MG Tablet) 5 MG-325 MG TABLET 5 Milligram ORAL as needed for PAIN Copies To: GÉNESIS [employer],SEKOU Brito; RONALDO [employer],SHILPA
--- NOTE | 2016-05-07 22:32 | NUR ---
AVSS. A/OX3.FOLLOW COMMANDS.JULIEN WITH +CMS.HEPARIN GTT CONT VIA PIV SITE AND NO ACTIVE BLEEDING NOTED.NO C'O CP OR RESP DISTRESS. TROPONIN AND EKG OBTAINED.PLAN OF CARE REVIEWED.
[2016-05-07 23:00] VITALS: BP 166/73
--- NOTE | 2016-05-08 04:57 | NUR ---
AT 0141, PATIENT HAD A 3 COMPLEXES NON SUSTAIN V TACH, PATIENT IS ALERT ORIENTED, VITAL SIGNS ARE STABLE, DR. MIRZA INFORMED. AT 0403, HAD ANOTHER RUN OF NON SUSTAIN V TAVH OF 18 COMPLEXES, BP IS 160/82, ASYMTOMATIC, HR IS 130'S PATIENT HAS NO COMPLAIN OF PAIN, CLAIMS THAT SHE IS COMFORTBALE. DR. MIRZA INFORMED, NO NEW ORDER.
[2016-05-08 06:12] LABS: ABSOLUTE BASOPHIL COUNT 0 /CUMM (0.0-0.2); ABSOLUTE EOSINOPHIL COUNT 0.2 /CUMM (0.0-0.7); ABSOLUTE GRANULOCYTE CT 5.5 /CUMM (1.4-6.5); ABSOLUTE MONOCYTE COUNT 0.7 /CUMM (0.10-0.60); BASOPHIL % 0.4 % (0.0-2.0); EOSINOPHIL % 2.6 % (0-5); GRANULOCYTE % 57.9 % (42.2-75.2); MEAN CORPUSCULAR HGB 27.8 PG (27.0-31.0); MEAN CORPUSCULAR VOLUME 84.1 FL (81.0-99.0); MEAN PLATELET VOLUME 8.5 FL (7.4-10.4); PLATELET COUNT 240 /CUMM (130-400); RBC DISTRIBUTION WIDTH 14.5 % (11.5-14.5); WHITE BLOOD CELL COUNT 9.4 /CUMM (4.8-10.8)
[2016-05-08 06:19] LABS: HEMATOCRIT 34.5 % (37-47)
[2016-05-08 06:33] LABS: PTT > 120 SEC (25-37)
[2016-05-08 07:00] VITALS: BP 167/69
[2016-05-08 08:00] VITALS: BP 162/80
--- NOTE | 2016-05-08 08:01 | PN- Resident CRCU ---
Subjective HPI/CRCU Issues: Patient was transferred to the ICU for close monitoring yesterday afternoon as her EKG showed new ST elevations in leads V1 and V2 and her second set of troponins came back at 19.4 increased from 0.36. She will be transferred to the [facility] this morning for cardiac catheterization by Dr. Rodriguez. Patient seen and examined this morning. She reports feeling well and has no complaints. She denies chest pain, shortness of breath and palpitations. Objective Vital Signs & I&O Last 8 Hrs of Vitals and I&O: Vital Signs Date Time Temp Pulse Resp B/P Pulse O2 O2 Flow FiO2 Ox Delivery Rate 05/08 0851 64 172/90 05/08 0848 64 172/90 05/08 0848 64 17205/08 0841 96 Nasal 2.0L Cannula 05/08 0800 97.9 59 20 162/80 96 Nasal 2.0L Cannula 05/08 0800 96 Nasal 2.0L Cannula 05/08 0700 52 14 167/69 96 Room Air 05/08 0400 Room Air 05/08 0000 Room Air 05/07 2300 97.4 56 166/73 05/07 2116 64 144/65 05/07 2031 96 Nasal 2.0L Cannula 05/07 1723 64 151/72 05/07 1641 Nasal 2.0L Cannula 05/07 1600 Nasal 2.0L Cannula 05/07 1600 97.7 70 20 190/98 99 Nasal 2.0L Cannula Exam General Appearance: well developed/nourished, no apparent distress Ears, Nose, Throat: moist mucus membranes Respiratory: decreased breath sounds, no crackles or wheezes Cardiovascular: regular rate/rhythm, normal S1 and S2 Gastrointestinal: soft, non-tender, non-distended, positive bowel sounds Extremities: no edema, no clubbing or cyanosis Current Medications: Current Medications Sig/Zulma Start time Last Medication Dose Route Stop Time Status Admin Albuterol Sulfate 3 ML ONCE ONE 05/08 0845 DC 05/08 INH 05/08 0846 0837 Amlodipine Besylate 10 MG DAILY 05/07 1000 DCD 05/08 PO 0848 Aspirin 162 MG DAILY 05/07 1000 DCD 05/08 PO 0851 Atorvastatin Calcium 40 MG DAILY 05/07 1000 DCD 05/08 PO 0852 Clonidine 0.4 MG BID 05/07 1000 DCD 05/08 PO 0851 Clopidogrel Bisulfate 75 MG DAILY 05/07 1000 DCD 05/08 PO 0849 Docusate Sodium 100 MG BID 05/07 1000 DCD 05/08 PO 0849 Furosemide 40 MG ONE ONE 05/08 0845 DC 05/08 PO 05/08 0846 0850 Furosemide 40 MG DAILY 05/07 1000 DC 05/07 IV 0912 Gabapentin 300 MG BID 05/07 1000 DCD 05/08 PO 0852 Heparin Sodium 25,000 UNIT Q24H 05/07 0345 DCD 05/08 (Porcine) IV 0315 Sodium Chloride 500 ML Insulin Aspart 0 Q4 05/08 1000 DCD 05/08 SC 0855 Insulin Aspart 0 TIDAC/HS 05/07 0841 DC 05/07 SC 1756 Insulin Detemir 16 UNITS DAILY 05/09 1000 DCD SC Insulin Detemir 8 UNITS ONCE ONE 05/08 0815 DC 05/08 SC 05/08 0816 0854 Insulin Detemir 16 UNITS DAILY 05/07 1000 DC 05/07 SC 0913 Insulin Human Regular 0 Q6 05/08 0804 DC SC Lisinopril 5 MG DAILY 05/07 1000 DCD 05/08 PO 0848 Metoprolol Succinate 75 MG BID 05/07 2200 DCD 05/07 PO 2115 Metoprolol Succinate 25 MG ONCE ONE 05/07 1600 DC 05/07 PO 05/07 1601 1723 Metoprolol Succinate 50 MG BID 05/07 1000 DC 05/07 PO 0917 Morphine Sulfate 15 MG Q4-6 PRN PRN 05/07 1200 DCD PO Morphine Sulfate 60 MG BID 05/07 1000 DCD 05/08 PO 0847 Nitroglycerin 0.4 MG DAILY 05/07 1910 DCD 05/07 TOP 2119 Nitroglycerin 1 GM ONCE ONE 05/07 1500 DC 05/07 TOP 05/07 1501 1500 Oxycodone/ 1 TAB Q6P PRN 05/07 0830 DCD 05/08 Acetaminophen PO 0847 Patient Medication 1 ED .STK-MED ONE 05/07 1349 DC Teaching ED 05/07 1350 Prednisone 40 MG DAILY 05/07 1000 DC 05/07 PO 05/11 1001 0916 Results Results: Laboratory Tests 05/08 05/08 05/07 05/07 0905 0555 2240 1732 Chemistry Sodium (137 - 145 mmol/L) 135 L 126 L Potassium (3.5 - 5.1 mmol/L) 3.5 Chloride (98 - 107 mmol/L) 94 L Carbon Dioxide (22 - 30 mmol/L) 28 Anion Gap (5 - 16) 4 L BUN (7 - 17 mg/dL) 18 H Creatinine (0.5 - 1.0 mg/dL) 0.8 Estimated GFR (>60 ml/min) > 60 Glucose (65 - 99 mg/dL) 188 H Calcium (8.4 - 10.2 mg/dL) 7.1 L Phosphorus (2.5 - 4.5 mg/dL) 3.2 Magnesium (1.6 - 2.3 mg/dL) 1.6 Total Bilirubin (0.2 - 1.3 mg/dL) 0.4 AST (14 - 36 U/L) 52 H ALT (9 - 52 U/L) 44 Troponin I (< 0.11 ng/ml) 9.87 *H Albumin (3.5 - 5.0 g/dL) 2.8 L Coagulation APTT (25 - 37 SEC) > 120 *H 68 H Hematology CBC w Diff NO MAN DIFF REQ WBC (4.8 - 10.8 /CUMM) 9.4 RBC (4.20 - 5.40 /CUMM) 4.10 L Hgb (12.0 - 16.0 G/DL) 11.4 L Hct (37 - 47 %) 34.5 L MCV (81.0 - 99.0 FL) 84.1 MCH (27.0 - 31.0 PG) 27.8 RDW (11.5 - 14.5 %) 14.5 Plt Count (130 - 400 /CUMM) 240 MPV (7.4 - 10.4 FL) 8.5 Gran % (42.2 - 75.2 %) 57.9 Lymphocytes % (20.5 - 51.1 %) 32.0 Monocytes % (1.7 - 9.3 %) 7.1 Eosinophils % (0 - 5 %) 2.6 Basophils % (0.0 - 2.0 %) 0.4 Absolute Granulocytes (1.4 - 6.5 /CUMM) 5.5 Absolute Lymphocytes (1.2 - 3.4 /CUMM) 3.0 Absolute Monocytes (0.10 - 0.60 /CUMM) 0.7 H Absolute Eosinophils (0.0 - 0.7 /CUMM) 0.2 Absolute Basophils (0.0 - 0.2 /CUMM) 0 PUBS MCHC (33.0 - 37.0 G/DL) 33.0 05/07 05/07 1636 1115 Chemistry Troponin I (< 0.11 ng/ml) 12.70 *H 19.40 *H Coagulation APTT (25 - 37 SEC) 39 H ECHO Findings: Normal size left ventricle. Moderate concentric left ventricular hypertrophy. Mildly hypokinetic inferior and lateral anthony. Normal left ventricular ejection fraction visually estimated at 55%. "pseudonormal" filling pattern of the left ventricle for age (stage 2 diastolic dysfunction). Normal right ventricular size and function. Normal right atrial size. Mild left atrial dilatation. Mild mitral regurgitation. Trace tricuspid regurgitation. Unable to estimate the right ventricular systolic pressure. Mild pulmonic regurgitation. Mildly dilated inferior vena cava. Impression/Plan Impression/Problem List Impression: 56 y/o F with PMHx of CAD s/p CABG, severe PVD and T2DM who presents with STEMI. She will be transferred to the [facility] for cardiac catheterization this morning. Problem List: 1. STEMI (ST elevation myocardial infarction) 2. T2DM (type 2 diabetes mellitus) 3. Hypertension Pain Ratin Tomorrow's Labs & Rationales: None (patient will be transferred to [facility] for cardiac cath) Plan Respiratory: #Acute hypoxemic respiratory failure: Resolved. Currently satting well on room air without shortness of breath. Lungs are clear without wheezes or crackles. Most likely secondary to fluid overload secondary to CHF and underlying COPD. Was started on prednisone 40 mg daily on admission for wheezes on lung exam, has received one dose so far. * Prednisone discontinued as lungs are currently clear on exam. * Provide supplemental oxygen as needed to keep SpO2 > 92% * TRC and nebs as needed. Infectious Diseases: Afebrile and without leukocytosis. No signs or symptoms of infection. Cardiovascular: #STEMI: New ST elevations in leads V1 and V2. Although troponin was initially 0.36, second set was significantly elevated to 19.4 which later downtrended to 12.7 and 9.87. * Will be transferred to [facility] for cardiac catheterization this morning. * Continue [id number] aspirin 162 mg PO daily, atorvastatin 40 mg PO daily, metoprolol-XL 75 mg PO daily and Plavix 75 mg PO daily. * 0.4 mg nitroglycerin patch applied: 12 hours on and 12 hours off. * Continue heparin IV drip. #HTN: * Continue cofmk-di-ejlgtkcyj amlodipine 10 mg PO QD, clonidine 0.4 mg PO BID, Lasix 40 mg PO daily, lisinopril 5 mg PO daily and metoprolol-XL 75 mg PO daily. Hematology: H/H stable. No issues. Metabolic: #T2DM: Presented with hyperglycemia to 536 on admission, most likely secondary to noncompliance with medications. Was supposed to take Levemir 10 units SQ QPM and Kombiglyze XR 2.5 mg/1000 mg daily but had stopped taking her medications due to insurance issues. * 8 units of Levemir will be administered this AM as patient was NPO overnight. * Accu-checks and Novolin Q4H as below given that patient is NPO: Every 4 Hours: Bolus Insulin: Novolog < 80 mg/dl: no coverage 80-150 mg/dl: no coverage 151-200 mg/dl: 2 units 201-250 mg/dl: 3 units 251-300 mg/dl: 4 units 301-350 mg/dl: 6 units 351-400 mg/dl: 8 units > 400 mg/dl: 10 units Alimentary: NPO overnight for cardiac catheterization. Neurological: AAO x 3. No issues. Skin: No issues. DVT/Prophylaxis: mechanical, pharmacological Code Status: Full Code
--- NOTE | 2016-05-08 08:30 | PN- Diabetes ---
Assessment/Plan Assessment: 56 year old female with a complicated past medical history significant for long-standing tobacco use, obstructive sleep apnea, hypertension, dyslipidemia, diabetes mellitus type 2 noncompliance, and coronary artery disease s/p CABG, and severe peripheral vascular disease, presented to the emergency department at [facility] on 05/07/2016 complaining of chest tightness. Her peak troponin was up to 19.4. Patient was transfered to ICU. She is going to have cath done. Currently she is kept NPO and has been on heprin drip in 12 NS. She is still on Prednisone 40 mg daily. Patient was put on Levemir 16 units daily, Novolog coverage before meals and Novolog coverage at bedtime. Her FSGs 267, 108, 231 and 188. Am lab showed sodium 126, K 3.5, calcium 7.1 and albumin 2.8. Patient denied having any chest pain at this moment. Plan: 1. her electrolytes were off this morning. I will recommend repeating her electrolytes stat just to double check. 2. since she is kept NPO, I agree with decreasing Levemir to 8 units daily; 3. hold off on Novolog coverage before meals and Novolog coverage at bedtime for now; 4. start Novolog coverage every 4 hours-- detail see the inpatient DM order; 5. monitor FSGs and electrolytes. will follow. Inpatient Diabetes Orders Every 4 Hours: Bolus Insulin: Novolog < 80 mg/dl: no coverage 80-100 mg/dl: no coverage 101-120 mg/dl: no coverage 121-150 mg/dl: no coverage 151-200 mg/dl: 2 units 201-250 mg/dl: 3 units 251-300 mg/dl: 4 units 301-350 mg/dl: 6 units 351-400 mg/dl: 8 units > 400 mg/dl: 10 units Subjective Subjective: She feels okay this morning. Objective Last 24 Hrs of Vital Signs/I&O Vital Signs Date Time Temp Pulse Resp B/P Pulse O2 O2 Flow FiO2 Ox Delivery Rate 05/08 0700 52 14 167/69 96 Room Air 05/08 0400 Room Air 05/08 0000 Room Air 05/07 2300 97.4 56 166/73 05/07 2116 64 144/65 05/07 2031 96 Nasal 2.0L Cannula 05/07 1723 64 151/72 05/07 1641 Nasal 2.0L Cannula 05/07 1600 Nasal 2.0L Cannula 05/07 1600 97.7 70 20 190/98 99 Nasal 2.0L Cannula 05/07 0917 93 170/82 05/07 0917 93 170/82 05/07 0916 93 17082 05/07 0915 93 Intake & Output 05/08 1600 05/08 0800 05/08 0000 Intake Total 235 972 Output Total 320 900 Balance -85 72 Intake, IV 235 232 Intake, Oral 740 Output, Urine 320 900 Patient 185 lb Weight Findings Pertinent Lab/Geo Results: Laboratory Tests 05/08 05/07 05/07 0555 2240 1732 Chemistry Sodium (137 - 145 mmol/L) 126 L Potassium (3.5 - 5.1 mmol/L) 3.5 Chloride (98 - 107 mmol/L) 94 L Carbon Dioxide (22 - 30 mmol/L) 28 Anion Gap (5 - 16) 4 L BUN (7 - 17 mg/dL) 18 H Creatinine (0.5 - 1.0 mg/dL) 0.8 Estimated GFR (>60 ml/min) > 60 Glucose (65 - 99 mg/dL) 188 H Calcium (8.4 - 10.2 mg/dL) 7.1 L Phosphorus (2.5 - 4.5 mg/dL) 3.2 Magnesium (1.6 - 2.3 mg/dL) 1.6 Total Bilirubin (0.2 - 1.3 mg/dL) 0.4 AST (14 - 36 U/L) 52 H ALT (9 - 52 U/L) 44 Troponin I (< 0.11 ng/ml) 9.87 *H Albumin (3.5 - 5.0 g/dL) 2.8 L Coagulation APTT (25 - 37 SEC) > 120 *H 68 H Hematology CBC w Diff NO MAN DIFF REQ WBC (4.8 - 10.8 /CUMM) 9.4 RBC (4.20 - 5.40 /CUMM) 4.10 L Hgb (12.0 - 16.0 G/DL) 11.4 L Hct (37 - 47 %) 34.5 L MCV (81.0 - 99.0 FL) 84.1 MCH (27.0 - 31.0 PG) 27.8 RDW (11.5 - 14.5 %) 14.5 Plt Count (130 - 400 /CUMM) 240 MPV (7.4 - 10.4 FL) 8.5 Gran % (42.2 - 75.2 %) 57.9 Lymphocytes % (20.5 - 51.1 %) 32.0 Monocytes % (1.7 - 9.3 %) 7.1 Eosinophils % (0 - 5 %) 2.6 Basophils % (0.0 - 2.0 %) 0.4 Absolute Granulocytes (1.4 - 6.5 /CUMM) 5.5 Absolute Lymphocytes (1.2 - 3.4 /CUMM) 3.0 Absolute Monocytes (0.10 - 0.60 /CUMM) 0.7 H Absolute Eosinophils (0.0 - 0.7 /CUMM) 0.2 Absolute Basophils (0.0 - 0.2 /CUMM) 0 PUBS MCHC (33.0 - 37.0 G/DL) 33.0 14 05/07 1636 1115 Chemistry Troponin I (< 0.11 ng/ml) 12.70 *H 19.40 *H Coagulation APTT (25 - 37 SEC) 39 H
--- NOTE | 2016-05-08 08:38 | Patient Discharge Instructions ---
Discharge Instructions General Discharge Information You were seen/treated for: Heart attack Watch for these problems: Chest pain, pressure or tightness Difficulty breathing Lightheadness or fainting Rapid or irregular heartbeat Sweating Special Instructions: You are going to [facility] for a cardiac catheterization to see how well your heart is working. This procedure involves the insertion of a thin tube called a catheter into a blood vessel leading to your heart. Please see your primary care physician Dr. Avilez within one week of discharge. Please follow up with your air drill operator Dr. Gibbs for your heart within one week of discharge. Please follow up with your construction equipment operator Dr. Vela for diabetes within two weeks of discharge. Diet Recommended Diet: Diabetic (With Salt Restriction) Activity Additional ACTIVITY Info: As tolerated Acute Coronary Syndrome Inclusion Criteria At DC or during hospital stay patient has or had the following: ACS DIAGNOSIS Yes Discharge Core Measures Meds if any: Prescribed or Continued at Discharge HANK/ARB if EF <40% Yes (EF estimated at 55%) Aspirin Yes Beta-Gabrielle Yes Statin Yes Meds if any: NOT Prescribed or Continued at Discharge Congestive Heart Failure Inclusion Criteria At DC or during hospital stay patient has or had the following: CHF DIAGNOSIS Yes Discharge Core Measures Meds if any: Prescribed or Continued at Discharge HANK/ARB for EF <40% Yes (EF estimated at 55%) Meds if any: NOT Prescribed or Continued at Discharge Cerebrovascular accident Inclusion Criteria At DC or during hospital stay patient has or had the following: CVA/TIA Diagnosis No Discharge Core Measures Meds if any: Prescribed or Continued at Discharge Meds if any: NOT Prescribed or Continued at Discharge Venous thromboembolism Inclusion Criteria VTE Diagnosis No VTE Type NONE VTE Confirmed by (Test) NONE Discharge Core Measures - Per Current guidelines, there needs to be overlap - treatment for the first 5 days of Warfarin therapy. - If discharged on Warfarin prior to 5 days of - overlap therapy, the patient will need to be - assessed for post discharge needs including - *Post discharge parental anticoagulation - *Warfarin and/or parental anticoagulation education - *Follow up date to check INR post discharge At least 5 days overlap therapy as Inpatient No Meds if any: Prescribed or Continued at Discharge Note: Overlap Therapy is Warfarin and Anticoagulant Meds if any: NOT Prescribed or Continued at Discharge
[2016-05-08 08:51] VITALS: BP 172/90
--- NOTE | 2016-05-08 09:52 | PN- Att Addend ---
Attending Addendum Attending Brief Note yesterday afternoon due to elevation of troponin and more EKG changes patients was moved to ICU for closer observation patient hemodinamically stable , Dr. Gibbs made arrangements for the patient to go today for cardiac catheterization paperwork is already. See the discharge summary and C MR. Meyer TOTALS 05/08 0000 05/07 0000 Intake Total 1893.6 Output Total 2900 Balance -1006.4 Intake, IV 383.6 Intake, Oral 1510 Output, Urine 2900 Patient 164 lb Weight Current Medications Sig/Zulma Start time Last Medication Dose Route Stop Time Status Admin Albuterol Sulfate 3 ML ONCE ONE 05/08 0845 DC 05/08 INH 05/08 0846 0837 Amlodipine Besylate 10 MG DAILY 05/07 1000 AC 05/08 PO 0848 Aspirin 162 MG DAILY 05/07 1000 AC 05/08 PO 0851 Atorvastatin Calcium 40 MG DAILY 05/07 1000 AC 05/08 PO 0852 Clonidine 0.4 MG BID 05/07 1000 AC 05/08 PO 0851 Clopidogrel Bisulfate 75 MG DAILY 05/07 1000 AC 05/08 PO 0849 Docusate Sodium 100 MG BID 05/07 1000 AC 05/08 PO 0849 Furosemide 40 MG ONE ONE 05/08 0845 DC 05/08 PO 05/08 0846 0850 Furosemide 40 MG DAILY 05/07 1000 DC 05/07 IV 0912 Gabapentin 300 MG BID 05/07 1000 AC 05/08 PO 0852 Heparin Sodium 25,000 UNIT Q24H 05/07 0345 AC 05/08 (Porcine) IV 0315 Sodium Chloride 500 ML Insulin Aspart 0 Q4 05/08 1000 AC 05/08 SC 0855 Insulin Aspart 0 TIDAC/HS 05/07 0841 DC 05/07 SC 1756 Insulin Detemir 16 UNITS DAILY 05/09 1000 AC SC Insulin Detemir 8 UNITS ONCE ONE 05/08 0815 DC 05/08 SC 05/08 0816 0854 Insulin Detemir 16 UNITS DAILY 05/07 1000 DC 05/07 SC 0913 Insulin Human Regular 0 Q6 05/08 0804 DC SC Lisinopril 5 MG DAILY 05/07 1000 AC 05/08 PO 0848 Metoprolol Succinate 75 MG BID 05/07 2200 AC 05/07 PO 2115 Metoprolol Succinate 25 MG ONCE ONE 05/07 1600 DC 05/07 PO 05/07 1601 1723 Metoprolol Succinate 50 MG BID 05/07 1000 DC 05/07 PO 0917 Morphine Sulfate 15 MG Q4-6 PRN PRN 05/07 1200 AC PO Morphine Sulfate 60 MG BID 05/07 1000 AC 05/08 PO 0847 Nitroglycerin 0.4 MG DAILY 05/07 1910 AC 05/07 TOP 2119 Nitroglycerin 1 GM ONCE ONE 05/07 1500 DC 05/07 TOP 05/07 1501 1500 Oxycodone/ 1 TAB Q6P PRN 05/07 0830 AC 05/08 Acetaminophen PO 0847 Patient Medication 1 ED .STK-MED ONE 05/07 1349 DE Teaching ED 05/07 1350 Prednisone 40 MG DAILY 05/07 1000 DC 05/07 PO 05/11 1001 0916 Laboratory Tests 05/08/16 0905: Sodium Pending 05/08/16 0555: Anion Gap 4 L, Estimated GFR > 60, Glucose 188 H, Calcium 7.1 L, Phosphorus 3.2, Magnesium 1.6, Total Bilirubin 0.4, AST 52 H, ALT 44, Albumin 2.8 L, APTT > 120 *H, CBC w Diff NO MAN DIFF REQ, RBC 4.10 L, MCV 84.1, MCH 27.8, RDW 14.5, MPV 8.5, Gran % 57.9, Lymphocytes % 32.0, Monocytes % 7.1, Eosinophils % 2.6, Basophils % 0.4, Absolute Granulocytes 5.5, Absolute Lymphocytes 3.0, Absolute Monocytes 0.7 H, Absolute Eosinophils 0.2, Absolute Basophils 0, PUBS MCHC 33.0 05/07/16 2240: Troponin I 9.87 *H 05/07/16 1732: APTT 68 H 05/07/16 1636: Troponin I 12.70 *H 05/07/16 1115: Troponin I 19.40 *H, APTT 39 H 05/07/16 0800: Troponin I Cancelled 05/07/16 0345: Urinalysis LIGHT H, Urine Color YEL, Urine Clarity CLEAR, Urine pH 6.0, Ur Specific [place] 1.020, Urine Protein 100 H, Urine Ketones NEG, Urine Nitrite NEG, Urine Bilirubin NEG, Urine Urobilinogen 0.2, Ur Leukocyte Esterase NEG, Ur Microscopic SEDIMENT EXAMINED, Urine RBC 1-3, Urine WBC 1-3 H, Urine Hemoglobin SMALL H, Urine Glucose >=1000 H 05/07/16 0241: Anion Gap 12, Estimated GFR 57 L, BUN/Creatinine Ratio 21.0, Glucose 536 *H, Calcium 8.9, Total Bilirubin 0.4, AST 37 H, ALT 53 H, Alkaline Phosphatase 117 , Troponin I 0.36 *H, [id number]-Ptyljcmphmr Pept 2430 H, Total Protein 6.2 L, Albumin 3.6, Globulin 2.6, Albumin/Globulin Ratio 1.4, D-Dimer 384 H, CBC w Diff NO MAN DIFF REQ, RBC 4.78, MCV 84.9, MCH 27.7, RDW 14.4, MPV 8.8, Gran % 81.8 H, Lymphocytes % 13.9 L, Monocytes % 3.1, Eosinophils % 0.9, Basophils % 0.3, Absolute Granulocytes 8.4 H, Absolute Lymphocytes 1.4, Absolute Monocytes 0.3, Absolute Eosinophils 0.1, Absolute Basophils 0, PUBS MCHC 32.6 L, Acetone Level NEGATIVE 05/07/16214: pH 7.39, pCO2 42, pO2 69 L, HCO3 25, ABG O2 Sat (Measured) 90.0 L, P-50 (Temp Corrected) Y, Carboxyhemoglobin 4.2, O2 Concentration % 4 LPM, Temperature 97.2, O2 Delivery Method N/C, Phlebotomy Draw Site RIGHT RADIAL Microbiology Date/Time Procedure - Status Source Growth 05/07 143 Surveillance Culture - RECD UPPER RESP 05/07 143 Surveillance Culture - RECD GI 05/07 1406 Stool Culture - CAN STOOL Cancelled: Cancelled via OE: Error
--- NOTE | 2016-05-08 10:13 | ECHOCARDIOGRAM REPORT ---
TREY STARR Age: 56 : 1960 Gender: F Exam Date: 05/07/2016 16:38 Exam Location: [facility] Ht (in): 66 Wt (lb): 163 BSA: 1.87 BP: 170 / 82 Ordering Physician: HUBER GUTIERRES MD Referring Physician: Anastacio Gibbs MD Technologist: Aleida Hope DRISS Room Number: 106 Indications: MYOCARDIAL ISCHEMIA/CO Rhythm: Sinus Technical Quality: Fair FINDINGS Left Ventricle Normal size left ventricle. Moderate concentric left ventricular hypertrophy. Mildly hypokinetic inferior and lateral anthony. No other obvious regional wall motion abnormalities. Normal left ventricular ejection fraction visually estimated at 55%. "pseudonormal" filling pattern of the left ventricle for age (stage 2 diastolic dysfunction). Right Ventricle Normal right ventricular size and function. Right Atrium Normal right atrial size. Left Atrium Mild left atrial dilatation. Mitral Valve Mild mitral annular calcification. Mitral valve mildly thickened. Mild mitral regurgitation. Aortic Valve Trileaflet aortic valve. Mild aortic sclerosis. No aortic valve stenosis or regurgitation. Tricuspid Valve Structurally normal tricuspid valve. Trace tricuspid regurgitation. Unable to estimate the right ventricular systolic pressure. Pulmonic Valve Pulmonic valve not well visualized, grossly normal. Mild pulmonic regurgitation. Pericardium No pericardial effusion. Great Vessels Normal size aortic root. Mildly dilated inferior vena cava. CONCLUSIONS Normal size left ventricle. Moderate concentric left ventricular hypertrophy. Mildly hypokinetic inferior and lateral anthony. Normal left ventricular ejection fraction visually estimated at 55%. "pseudonormal" filling pattern of the left ventricle for age (stage 2 diastolic dysfunction). Normal right ventricular size and function. Normal right atrial size. Mild left atrial dilatation. Mild mitral regurgitation. Trace tricuspid regurgitation. Unable to estimate the right ventricular systolic pressure. Mild pulmonic regurgitation. Mildly dilated inferior vena cava. Anastacio Gibbs M.D. (Electronically Signed) Final Date: 08 May 2016 10:12 MEASUREMENTS (Male / Female) Normal Values 2D ECHO LV Diastolic Diameter PLAX 3.7 cm 4.2 - 5.9 / 3.9 - 5.3 cm LV Systolic Diameter PLAX 2.6 cm 2.1 - 4.0 cm LV Fractional Shortening PLAX 29.7 % 25 - 46 % LV Ejection Fraction 2D Teich 57.7 % IVS Diastolic Thickness 1.6 cm LVPW Diastolic Thickness 1.6 cm LV Relative Wall Thickness 0.9 RV Internal Dim ED PLAX 2.7 cm 1.9 - 3.8 cm LVOT Diameter 1.9 cm Aortic Root Diameter 2.4 cm LA Systolic Diameter LX 5.0 cm 3.0 - 4.0 / 2.7 - 3.8 cm LA Volume 62.0 cm 18 - 58 / 22 - 52 cm Ascending Aorta Diameter 2.5 cm DOPPLER AV Peak Velocity 126.0 cm/s AV Peak Gradient 6.4 mmHg AV Mean Velocity 96.4 cm/s AV Mean Gradient 4.0 mmHg AV Velocity Time Integral 28.0 cm LVOT Peak Velocity 96.3 cm/s LVOT Peak Gradient 3.7 mmHg LVOT Mean Velocity 67.4 cm/s LVOT Mean Gradient 2.0 mmHg LVOT Velocity Time Integral 20.8 cm LVOT Stroke Volume 59.0 cm AV Area Cont Eq vti 2.1 cm AV Area Cont Eq pk 2.2 cm MV Peak Velocity 111.0 cm/s MV Peak Gradient 4.9 mmHg MV Mean Velocity 68.0 cm/s MV Mean Gradient 2.0 mmHg Mitral E Point Velocity 98.2 cm/s Mitral A Point Velocity 84.9 cm/s Mitral E to A Ratio 1.2 MV PHT Velocity 111.0 cm/s MV Deceleration [place] 312.0 cm/s MV Pressure Half Time 106.7 ms MV Area PHT 2.1 cm MV Deceleration Time 169.0 ms PV Peak Velocity 113.5 cm/s PV Peak Gradient 5.2 mmHg PV Mean Velocity 74.4 cm/s PV Mean Gradient 2.5 mmHg PV Velocity Time Integral 23.9 cm LV E' Lateral Velocity 4.7 cm/s Mitral E to LV E' Lateral Ratio 21.0 LV E' Septal Velocity 3.7 cm/s Mitral E to LV E' Septal Ratio 26.5
== END 2016-05-08 10:00 | disposition short-term general hospital (02) | DRG 280 ==
LOC: ENRESERVDT → ENRESERVTM → ERH 02:01 → ERHI 04:00 → 1NO 04:00 → CRI 14:28
PROVIDERS: Dermatology; Emergency Medicine; Internal Medicine Interventional Cardiology; ADMIT Internal Medicine
DX: I21.3 ST elevation (STEMI) myocardial infarction of unspecified site (principal); J96.01 Acute respiratory failure with hypoxia; I50.33 Acute on chronic diastolic (congestive) heart failure; I11.0 Hypertensive heart disease with heart failure; I24.8 Other forms of acute ischemic heart disease; I73.9 Peripheral vascular disease, unspecified; Z91.14 Patient's other noncompliance with medication regimen; I25.10 Atherosclerotic heart disease of native coronary artery without angina pectoris; F17.210 Nicotine dependence, cigarettes, uncomplicated; Z95.1 Presence of aortocoronary bypass graft; Z95.5 Presence of coronary angioplasty implant and graft; E11.9 Type 2 diabetes mellitus without complications; Z79.84 Long term (current) use of oral hypoglycemic drugs; E78.5 Hyperlipidemia, unspecified
CPT/HCPCS: CCU; 36415; 81001; 82436; 87045; 93005; 93010; 93306; 96374; 99291; J1644; J1815; J1940; J3490

== ENCOUNTER 2016-09-18 15:13 | Emergency (ER) | payer OTHER ==
[~2016-09-18] VITALS: Ht 162.6 cm; Wt 79.8 kg
[~2016-09-18 15:13] MED LIST changes: +PERCOCET 5-3251 EACH PO
[2016-09-18 15:32] VITALS: BP 174/70
--- NOTE | 2016-09-18 15:44 | ED THROAT/DENTAL COMPLAINT ---
History of Present Illness General Chief Complaint: Sore Throat, Dental Pain Stated Complaint: DENTAL PAIN Source: patient, old records Exam Limitations: no limitations Vital Signs & Intake/Output Vital Signs & Intake/Output Vital Signs Date Time Temp Pulse Resp B/P B/P Pulse O2 O2 Flow FiO2 Mean Ox Delivery Rate 09/18 1532 97.6 64 16 174/70 96 Room Air Allergies Coded Allergies: adhesive (UNKNOWN 09/12/15) Reconcile Medications Amlodipine Besylate (Amlodipine) 10 MG TABLET 1 TAB PO DAILY BP (Reported) Amoxicillin/Potassium Clav (Augmentin 875-125 Tablet) 875 MG-125 MG TABLET 1 TAB PO BID dental Aspirin (Children's Aspirin) 81 MG TAB.CHEW 2 TAB PO DAILY HEART HEALTH Atorvastatin Calcium 40 MG TABLET 40 MG PO DAILY HEART HEALTH CLONIDINE HCL (Clonidine) 0.2 MG TABLET 2 TAB PO BID blood pressure (Reported ) Clopidogrel Bisulfate (Plavix) 75 MG TABLET 75 MG PO DAILY HEART HEALTH ( Reported) Docusate Sodium (Colace) 100 MG CAPSULE 1 CAP PO BID CONSTIPATION (Reported) Furosemide (Lasix) 40 MG TABLET 1 TAB PO DAILY DIURETIC (Reported) Gabapentin (Neurontin) 300 MG CAPSULE 1 CAP PO BID NERVE PAIN (Reported) Ibuprofen 800 MG TABLET 1 TAB PO TID PRN pain Insulin Detemir (Levemir) 100 UNIT/1 ML VIAL 10 UNITS SC AT BED TIME DIABETES Lisinopril 5 MG TABLET 1 TAB PO DAILY KIDNEY HEALTH Metoprolol Succinate 50 MG TAB.ER.24H 1.5 TAB PO BID HEART/BP (Reported) Morphine Sulfate 15 MG TABLET 1 TAB PO Q4-6H PRN CHRONIC PAIN (Reported) Ms Contin (Morphine Sulfate ER) 60 MG TABLET.ER 1 TAB PO BID PAIN (Reported) Oxycodone HCl/Acetaminophen (Percocet 5-325 MG Tablet) 5 MG-325 MG TABLET 5 MG PO PRN PAIN (Reported) Triage Note: LOWER BACK LEFT MOLAR/MANDIBLE PAIN SWELLING X2 DAYS, WORRIED HER TOOTH IS INFECTED. DOES NOT HAVE A DENTIST AT THIS TIME DUE TO INSURANCE ISSUES. AFEBRILE. 12/31 PAIN AND MEDICATED WITH MOTRIN IN TRIAGE Triage Nurses Notes Reviewed? yes Onset: Abrupt Duration: day(s): (2), constant Timing: recent history Injury Environment: home Severity: moderate Severity Numbers: 10 Modifying Factors: Worsens With: eating. Associated Symptoms: DENIES HPI: 56-year-old female presents to ER for evaluation later today history of left lower gingival pain and facial swelling. She's been taking her pain medication without improvement she denies recent trauma or injury she is not follow-up with dentist she is concerned that it may be infected. No fever no chills no sore throat. Pain is worse with palpation and eating. No modifying factors or associated symptoms otherwise. No radiation of pain (MIGUEL ANGEL GIBBS) Past History Travel History Traveled to [place] past 21 day No Medical History Any Pertinent Medical History? 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 No (MIGUEL ANGEL GIBBS) Review of Systems Review of Systems Constitutional: Reports: see HPI. All Other Systems: Reviewed and Negative Comments Review of systems: See HPI, All other systems negative. Constitutional, no chills no fever, no malaise no weight loss HEENT: No visual changes no sore throat no congestion, no ear pain Cardiovascular: No chest pain , no palpitation , no orthopnea Skin: no rashes, no change in skin Respiratory: No dyspnea no cough no sputum no hemoptysis GI: No nausea no vomiting, no diarrhea, no bloating/constipation : No dysuria No hematuria, no frequency, no discharge Muscle skeletal: No joint pain, no joint swelling, no back pain, no neck pain, Neurologic: No numbness no confusion, no headache Psych: No stress no depression,. Heme/endocrine: No bruising no bleeding Immunology: No lymphadenopathy (MIGUEL ANGEL GIBBS) Physical Exam Physical Exam General Appearance: well developed/nourished, no apparent distress, alert, awake Mouth/Throat: pharynx normal Comments: Well-developed well-nourished patient in no apparent distress. Head/Face: Atraumatic, no maxillary/frontal sinus tenderness, no facial swelling Eyes: PERRL, EOMI Ear:External auditory canals clear, no erythema, no FB. Nose: atraumatic.Normal inspectio Throat: Moist mucous membranes.Pharynx normal. No pharyngeal erythema/exudate seen. No stridor/drooling or assymetry. No swelling or edema. Neck: Supple, no lymphadenopathy, FROM Back: FROM Cardiovascular: Regular rate and rhythms no murmurs Respiratory: No respiratory distress. Patient speaking in full complete sentences. Breath sounds clear to auscultation bilaterally: NO W/R/R Extremities: full range of motion Neuro: awake, alert, and oriented to person, place and time. There were no obvious focal neurologic abnormalities. Skin: Warm & dry;No appreciable rash on exposed skin Psych: Mood affect normal, normal memory normal judgment. Core Measures ACS in differential dx? No Severe Sepsis Present: No Septic Shock Present: No (MIGUEL ANGEL GIBBS) Progress Differential Diagnosis: carious tooth, epiglottitis, Ludwigs angina, odontogenic abscess, olinda-tonsillar abscess, stomatitis/gingivitis, strep pharyngitis Plan of Care: Current Medications Sig/Zulma Start time Last Medication Dose Stop Time Status Admin Ibuprofen 800 MG ONCE ONE 09/18 1544 AC (Motrin) 09/18 1545 I discussed with the patient at length all of their results. I had an extensive conversation regarding need for close follow up with their dental clinic list provided. 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 Prescription for Augmentin provided I discussed with the patient/family the medications that they will receive. I gave them signs and symptoms that could indicate an adverse reaction. I have advised them to limit their activities until they can see how they respond to the medication. (MIGUEL ANGEL GIBBS) Departure Departure Time of Disposition: 1548 Disposition: HOME OR SELF CARE Condition: Stable Clinical Impression Primary Impression: Pain, dental Referrals: SHILPA HIGGINS MD (PCP/Family) Additional Instructions: Augmentin as directed, Ibuprofen as directed. follow-up with dental clinic list provided continue taking her pain medications as prescribed. these were sent to [facility] Departure Forms: Customer Survey General Discharge Information Prescriptions: Current Visit Scripts Amoxicillin/Potassium Clav (Augmentin 875-125 Tablet) 1 TAB PO BID #14 TAB Ibuprofen 1 TAB PO TID PRN pain #30 TAB (MIGUEL ANGEL GIBBS) PA/COOK TACO Co-Sign Statement Statement: ED Attending supervision documentation- [] I saw and evaluated the patient. I have also reviewed all the pertinent lab results and diagnostic results. I agree with the findings and the plan of care as documented in the PA's/COOK TACO's documentation. [X] I have reviewed the ED Record and agree with the PA's/COOK TACO's documentation. [] Additions or exceptions (if any) to the PAs/COOK TACO's note and plan are summarized below: [] ([employer],AMANDA)
[2016-09-18] MEDS ORDERED: AUGMENTIN 875-1 EACH PO (15:50)
[2016-09-18] MEDS ORDERED: IBUPROFEN800 M1 PO (15:50)
== END 2016-09-18 16:08 ==
LOC: ERH 15:13
DX: K08.89 Other specified disorders of teeth and supporting structures (principal)